=== PATIENT | female | born 1965 | race Caucasian/White ===

== ENCOUNTER 2018-06-18 16:55 | Observation (INO) ==
[2018-06-18] MEDS ORDERED: *HR* OxyCODONE Immed Rel 5 MG TABLET PO STA (17:42)
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
[2018-06-18] MEDS ORDERED: 0.9 % Sodium Chloride 1,000 ML IVC ONE (17:44)
[2018-06-18 18:08] LABS: Bilirubin,Urine Negative (Negative); Blood,Urine Small (Negative); Clarity,Urine Clear (Clear); Color,Urine Yellow (Yellow); Glucose,Urine (UA) Normal (Normal); Ketones,Urine Negative (Negative); Leukocyte Esterase,Urine Negative (Negative); Nitrite,Urine Negative (Negative); Protein,Urine Trace mg/dL (Neg-Trace); Urobilinogen,Urine Normal (Normal)
[2018-06-18 18:11] LABS: Bacteria,Urine None Seen per hpf (None-Few); Hyaline Casts,Urine None Seen per lpf (None-Few); RBC,Urine 0-3 per hpf (0-3); Squamous Epithelial Cell,Urine Many per lpf (None-Few); WBC,Urine 0-3 per hpf (0-3)
[2018-06-18 19:00] LABS: Basophils # 0.1 K/mcL (0.0-0.2); Basophils % 0.7 %; Eosinophils # 1.1 K/mcL (0.0-0.6); Eosinophils % 10.5 %; Hematocrit 34.4 % (35.3-44.9); Hemoglobin 11.4 g/dL (11.5-15.4); Immature Granulocytes % 0.1 % (0-4); Lymphocytes # 5.8 K/mcL (0.6-4.6); Lymphocytes % 53.2 %; Mean Corpuscular HGB Conc 33.1 g/dL (31.6-35.5); Mean Corpuscular Hemoglobin 27.1 pg (28.0-33.3); Mean Corpuscular Volume 81.9 fL (83.0-100.0); Mean Platelet Volume 10.1 fL (9.4-12.4); Monocytes # 1.5 K/mcL (0.0-1.3); Monocytes % 14.2 %; Neutrophils # 2.3 K/mcL (1.6-8.9); Platelet Count 274 K/mcL (140-400); Red Cell Distribution Width 19.3 % (11.5-14.5); Segmented Neutrophils % 21.3 %
[2018-06-18 19:21] LABS: BUN/Creatinine Ratio 12 (6-26); Blood Urea Nitrogen 9 mg/dL (6-20); Calcium 8.8 mg/dL (8.6-10.3); Carbon Dioxide 23 mEq/L (23-29); Chloride 108 mEq/L (98-107); Glucose 96 mg/dL (70-105); Osmolality,Calculated 289 (280-300); Potassium 3.2 mEq/L (3.5-5.1); Sodium 140 mEq/L (136-145); eGFR For Non-African Americans > 60 (> 60)
[2018-06-18 19:22] LABS: Troponin I < 0.03 ng/mL (< 0.04)
[2018-06-18] MEDS ORDERED: Potassium Chloride Elixir 20 MEQ/15 ML UDC PO ONE (19:23)
[2018-06-18] MEDS ORDERED: Metoclopramide 20 MG in 0.9 % Sodium Chloride 50 ML IVPB SCH (19:30)
[2018-06-18] MEDS ORDERED: Naloxone 0.4 MG/ML INJ IVP PRN (23:23)
[2018-06-18] MEDS ORDERED: traMADol 50 MG TABLET PO PRN (23:23)
[2018-06-18] MEDS: Acetaminophen 325 MG TABLET PO PRN (23:33)
[2018-06-19] MEDS: *HR* Heparin 5,000 UNIT/ML VIAL SQ SCH ×2 (00:10→05:10)
--- NOTE | 2018-06-19 02:27 | Internal Med History&Physical ---
Date of Encounter: 06/19/18 Time of Encounter: 02:27 Internal Medicine - H&P: HPI Chief complaint: Headache/Hypertension History of present illness: Ms. Haas is a 53 year old female with past medical history of hypertension who presented to the ED due to complaints of headache associated with hypertension and confusion. Patient states that she has been having headaches for the past several days which have been worse in intensity than usual. Headaches have been throbbing and frontal in location and nonradiating associated with photophobia. Patient denies any history of migraines but states that she has headaches on and off which occur for several days at a time. She was concerned that her blood pressure may be elevated and checked it at home and found it to be elevated with a systolic in the 180s. She also reports confusion which she describes as not feeling herself. Upon initial assessment in the ED blood pressure was found to be 202/125. She was given 1 dose of hydralazine with reduction of blood pressure to 154 and improvement in overall symptoms including confusion. In the ED patient endorsed jaw pain with eating and tenderness of the bilateral temporal arteries, worse on the left to palpation. An ESR was obtained due to concern for temporal arthritis and was mildly elevated in the 50s. However, patient's headaches seemed to Micheal location from one side to the other with treatment for pain and nausea. 3 findings were relatively unremarkable. CT scan of the head was performed which showed no acute intracranial abnormality. Past Med Surg Social Fam HX - Past Medical History Medical history: COPD, hypertension Additional medical history: neuropathy, iron deficiency anemia - Past Surgical History Surgical History: splenectomy - Social History Smoking Status: Current every day smoker Packs per day: 1.5 Smokeless Tobacco Status: No Alcohol use: none Drug use: none - Family History Mother History Unknown: Yes Adopted: Yes Father History Unknown: Yes Adopted: Yes Internal Medicine - H&P: Meds Lisinopril 20 mg pe PO BID 03/26/15 [History] Aspirin 04/08/15 [History] Allergy/AdvReac Type Severity Reaction Status Date / Time No Known Allergies Allergy Verified 06/18/18 17:16 All Systems PM: A 10-system review of systems was performed and is negative for pertinent findings except as documented above in the HPI. - Constitutional Constitutional: no chills, no fever(s), no night sweats - EENT Eyes: no change in vision, no discharge, no pain, no photophobia Ears: no ear discharge, no ear pain, no tinnitus Nose, mouth and throat: no dysphagia, no nasal discharge, no neck pain, no sore throat - Cardiovascular Cardiovascular ROS IM: no chest pain, no diaphoresis, no dyspnea, no lightheadedness, no palpitations, no syncope - Respiratory Respiratory: no cough, no dyspnea, no wheezing, no excessive phlegm production - Gastrointestinal Gastrointestinal: no abdominal pain, no diarrhea, no hematemesis, no hematochezia, no melena, no nausea, no vomiting - Genitourinary Genitourinary: no change in urinary stream, no dysuria, no flank pain, no hematuria - Musculoskeletal Musculoskeletal ROS IM: no numbness, no tingling - Integumentary Integumentary IM: no rash, no unusual bruising - Neurological Neurological ROS: no confusion, no convulsions, no focal weakness, no numbness, no tingling, no tremor(s) - Hematologic/Lymphatic Hematologic/Lymphatic: no easy bruising - Constitutional Vitals: Temp Pulse Resp BP Pulse Ox 97.7 F 95 15 180/110 98 06/18/18 22:54 06/19/18 02:09 06/18/18 22:54 06/19/18 02:09 06/18/18 22:54 Exam: General: Alert and oriented 3 lying in bed in no acute distress though covering her eyes with her forearm Skin:Normal color, no rash, no lesions. HEENT:EOM, pupils equal, round and reactive. No significant tenderness elicited to bilateral temporal palpation Cardiovascular:Normal S1 & S2, no rubs, murmurs or gallops. No JVD. Pulse regular. Lungs:Normal breath sounds, no wheezes or crackles. Abdomen:Soft, non-tender, no rigidity. Extremities:No deformity, no edema or tenderness, no joint swelling or clubbing. Neurological:Normal cognition and motor skills. Pulses:Carotid and radial pulses normal +2. Rest of the physical exam is non contributory Internal Med - H&P Results - Labs CBC & Chem 7: 06/19/18 04:09 06/19/18 04:09 Labs: Short CBC 06/18/18 Range/Units 18:49 WBC 10.8 (4.3-11.1) K/mcL Hgb 11.4 L (11.5-15.4) g/dL Hct 34.4 L (35.3-44.9) % Plt Count 274 (140-400) K/mcL Neutrophils # 2.3 (1.6-8.9) K/mcL BMP 06/18/18 18:49 Sodium 140 Potassium 3.2 L Chloride 108 H Carbon Dioxide 23 BUN 9 Creatinine 0.76 Glucose 96 Calcium 8.8 Cardiac Enzymes 06/18/18 Range/Units 18:49 Troponin I < 0.03 (< 0.04) ng/mL Urine 06/18/18 Range/Units 17:56 Urine Color Yellow (Yellow) Urine Clarity Clear (Clear) Urine pH 7.0 (5.0-8.0) pH Units Ur Specific [place] 1.020 (1.010-1.025) Urine Protein Trace (Neg-Trace) mg/dL Urine Glucose (UA) Normal (Normal) mg/dL - Impressions ITS Impressions Chest X-Ray 06/18/18 17:25 IMPRESSION: No acute cardiopulmonary disease. D/ / Valerio Guerra MD / Valerio Guerra MD Interpreting Provider: Valerio Guerra MD Head CT 06/18/18 17:42 IMPRESSION: No acute intracranial abnormality. D/ / Petra Arcos MD / Petra Arcos MD Interpreting Provider: Petra Arcos MD - Assessment and plan (1) Elevated blood pressure reading Current Visit: Yes Status: Acute Assessment and plan: Elevated blood pressure in the setting of headache and confusion described as not feeling right secondary to hypertensive urgency versus emergency. Aside from her headache, Laboratory findings not show any evidence of end organ damage. CT scan of head did not show any acute intracranial abnormalities. EKG was unremarkable. Blood pressure and symptoms appear to improve after receiving 10 mg of hydralazine in the ED. Monitor blood pressure Hydralazine PRN for systolic blood pressure greater than 180. (2) Headache Current Visit: Yes Status: Acute Assessment and plan: Headache that is frontal and bitemporal in location, described as pounding associated with photophobia and nausea appear to be consistent with migraine headache. Patient does have history of headaches but does state that this is greater in intensity than her previous headaches. CT scan of the head was unremarkable. Headache appeared to improve after treatment with anti-emetics and blood pressure control. There was initial concern for temporal arteritis given patient's age, questionable tenderness to palpation of the bitemporal arteries and reports of jaw pain with food. ESR was mildly elevated at 55. However, given the migratory pattern of her headache over the ED course, it was felt to be less consistent with temporal arteritis. Aside from her photophobia she does not endorse any transient vision loss. I asked the patient to let us know immediately if she has any sort of transient vision loss. She is currently feeling much better. We will continue to monitor closely and treat her hypertension. Pain regimen on board. Qualifiers: Headache type: unspecified Headache chronicity pattern: unspecified pattern Intractability: not intractable Qualified Code(s): R51 - Headache (3) Confusion Current Visit: Yes Status: Acute Assessment and plan: Confusion described as not feeling herself. CT scan of the head as stated above was unremarkable. Symptoms seem to have improved if not completely resolved after treatment of her blood pressure and nausea. We will monitor. (4) DVT prophylaxis Current Visit: Yes Status: Acute Assessment and plan: A cutaneous heparin - Time Spent With Patient Total time spent is greater than 50% in coordination of care (as documented) at patient's floor/unit and/or counseling patient:
[2018-06-19] MEDS ORDERED: Metoclopramide 10 MG/2 ML VIAL IVP PRN (02:46)
[2018-06-19] MEDS ORDERED: Potassium Chloride Elixir 20 MEQ/15 ML UDC PO ONE (04:07)
[2018-06-19 04:39] LABS: Basophils # 0.1 K/mcL (0.0-0.2); Basophils % 0.8 %; Eosinophils # 0.7 K/mcL (0.0-0.6); Eosinophils % 7.9 %; Hematocrit 33.4 % (35.3-44.9); Hemoglobin 11.2 g/dL (11.5-15.4); Immature Granulocytes % 0.4 % (0-4); Lymphocytes # 4.4 K/mcL (0.6-4.6); Lymphocytes % 52.7 %; Mean Corpuscular HGB Conc 33.5 g/dL (31.6-35.5); Mean Corpuscular Hemoglobin 27.1 pg (28.0-33.3); Mean Corpuscular Volume 80.9 fL (83.0-100.0); Mean Platelet Volume 11.7 fL (9.4-12.4); Monocytes # 1.2 K/mcL (0.0-1.3); Monocytes % 14.8 %; Neutrophils # 1.9 K/mcL (1.6-8.9); Platelet Count 233 K/mcL (140-400); Red Blood Count 4.13 M/mcL (3.82-4.97); Red Cell Distribution Width 19.3 % (11.5-14.5); Segmented Neutrophils % 23.4 %
[2018-06-19 04:45] LABS: Alanine Aminotransferase 14 Units/L (7-52); Albumin 3.1 g/dL (3.5-5.7); Albumin/Globulin Ratio 0.9 (1.1-2.2); Alkaline Phosphatase 115 Units/L (34-104); Aspartate Amino Transferase 29 Units/L (13-39); BUN/Creatinine Ratio 15 (6-26); Bilirubin,Total 0.7 mg/dL (0.3-1.0); Blood Urea Nitrogen 11 mg/dL (6-20); Calcium 8.7 mg/dL (8.6-10.3); Carbon Dioxide 20 mEq/L (23-29); Chloride 113 mEq/L (98-107); Globulin 3.6 g/dL (2.4-3.5); Glucose 131 mg/dL (70-105); Osmolality,Calculated 295 (280-300); Potassium 3.5 mEq/L (3.5-5.1); Sodium 142 mEq/L (136-145); Total Protein 6.7 g/dL (6.4-8.9); eGFR For Non-African Americans > 60 (> 60)
[2018-06-19 06:58] VITALS: BP 147/83
[2018-06-19] MEDS: Acetaminophen 325 MG TABLET PO PRN (09:13)
--- NOTE | 2018-06-19 10:46 | Discharge Summary ---
- NOTES TO OUTPATIENT PROVIDER Notes to Outpatient Provider: Follow up with PCP in one week. please quit smoking Date of Encounter: 06/19/18 Time of Encounter: 10:40 - Discharge Diagnosis (1) Confusion Priority: Primary Status: Acute Assessment and Plan: Unclear etiology be due to uncontrolled hypertension, headache and anxiety resolved (2) Headache Priority: Primary Status: Acute Qualifiers: Headache type: unspecified Headache chronicity pattern: unspecified pattern Intractability: not intractable Qualified Code(s): R51 - Headache (3) DVT prophylaxis Priority: Secondary Status: Acute (4) Hypertensive urgency Priority: Secondary Status: Acute (5) Tobacco dependence Priority: Secondary Status: Acute Hospital course: Ms. Haas is a 53 year old female with past medical history of COPD, hypertension and chronic tobacco dependence patient presented to the ED due to complaints of headache. She also reports confusion which she describes as not feeling herself. Patient states that she has been having headaches for the past several days which have been worse in intensity than usual. Headaches have been throbbing and frontal in location and non radiating associated with photophobia. She was concerned that her blood pressure may be elevated and checked it at home and found it to be elevated with a systolic in the 180s. Upon initial assessment in the ED blood pressure was found to be 202/125. She was given 1 dose of hydralazine with reduction of blood pressure to 154 and improvement in overall symptoms including confusion. Patient was admitted in the hospital and started her on symptomatic and supportive care with anti-inflammatory medication, narcotics and anti emetics. Patient stated her headache completely resolved today Tylenol. She denied any blurry vision/visual changes. Patient does smoke 1 1/2 pack cigarettes per day, I did relationship counselor the patient to quit smoking and offered her nicotine patches. - Time Spent with Patient Total time spent providing and/or coordinating discharge services: - Discharge Medications Prescriptions: Naproxen 500 mg PO BID PRN #20 tablet PRN Reason: Headache Nicotine Patch [Nicoderm] 21 mg TD DAILY #30 patch.td24 Home Medications: Amlodipine Besylate 10 mg PO DAILY 06/19/18 [History] Aspirin [Lo-Dose Aspirin EC] 81 mg PO DAILY 06/19/18 [History] Ferrous Gluconate 324 mg PO DAILY 06/19/18 [History] Labetalol HCl 100 mg PO DAILY 06/19/18 [History] Lisinopril [Zestril] 20 mg PO DAILY 06/19/18 [History] Naproxen 500 mg PO BID PRN #20 tablet 06/19/18 [Rx] Nicotine Patch [Nicoderm] 21 mg TD DAILY #30 patch.td24 06/19/18 [Rx] Omeprazole [PriLOSEC] 20 mg PO DAILY 06/19/18 [History] hydrOXYzine HCl [Hydroxyzine HCl] 50 mg PO Q8H PRN 06/19/18 [History] Allergies/Adverse Reactions: Allergy/AdvReac Type Severity Reaction Status Date / Time No Known Allergies Allergy Verified 06/18/18 17:16 Date of admission: 06/18/18 21:29 Primary care physician: Una Brown CNP - Constitutional Vitals: Temp Pulse Resp BP Pulse Ox 98.1 F 98 16 147/83 95 06/19/18 06:57 06/19/18 06:57 06/19/18 06:57 06/19/18 06:57 06/19/18 06:57 General appearance: Present: A&O X 3, no acute distress, answers questions appropriately Exam: Gen: Alert, awake, Oriented to time,place and person Chest: Diminished breath sounds B/L, No wheezing, No crackles, No rales Heart: S1S2+ RRR No murmurs Abd: Soft, NT, BS +, No organomegaly Ext: No edema, pulses are palpable, No calf tenderness Neuro : Benign findings Skin: No rash. - Patient Status Disposition: Home, Self-Care Condition: Good Overall status at discharge: patient is back to baseline - Discharge Instructions Follow Up With: Una Brown CNP [Primary Care Provider] - - Diet and Activity Activity: increase activity as tolerated Diet: low salt diet
--- NOTE | 2018-06-20 19:59 | Electrocardiograph Report ---
[address] [place] [address] Test Date: 2018-06-18 Pat Name: Tammy Haas Department: EXAM10 Room: 3B Gender: F Facility Administrator: : [id number] Requested By: Tulio Carmona Order Number: [id number] Reading MD: Eulalia Curry Measurements Intervals [place] Rate: 93 P: 57 WA: 194 QRS: -36 QRSD: 85 T: 50 QT: 373 QTc: 464 Interpretive Statements Sinus rhythm Inferior infarct, old Probable anteroseptal infarct, old Electronically Signed On 06-20-2018 19:57:54 EST by Eulalia Curry
== END 2018-06-19 11:56 | disposition home or self-care (01) ==
LOC: 3BNU 16:55 → EMEROOARM 16:55 → 3BNU 22:01
PROVIDERS: ADMIT Internal Medicine; ATTEND Internal Medicine

== ENCOUNTER 2019-11-16 17:15 | Observation (INO) ==
[2019-11-16] MEDS ORDERED: Ondansetron 4 MG/2 ML VIAL IVP ONE ×2 (18:19→22:45)
[2019-11-16] MEDS ORDERED: Isovue-370 500 ML BOTTLE IVP ONE (18:21)
[2019-11-16 19:07] LABS: Bilirubin,Urine Negative (Negative); Blood,Urine Negative (Negative); Clarity,Urine Cloudy (Clear); Color,Urine Yellow (Yellow); Glucose,Urine (UA) Normal (Normal); Ketones,Urine Negative (Negative); Leukocyte Esterase,Urine Negative (Negative); Nitrite,Urine Negative (Negative); PH,Urine 7.5 pH Units (5.0-8.0); Protein,Urine Negative (Neg-Trace); Specific Gravity,Urine 1.012 (1.010-1.025); Urobilinogen,Urine Normal (Normal)
[2019-11-16 19:08] LABS: Bacteria,Urine None Seen per hpf (None-Few); Hyaline Casts,Urine None Seen per lpf (None-Few); RBC,Urine 0-3 per hpf (0-3); Squamous Epithelial Cell,Urine Moderate per lpf (None-Few); WBC,Urine 0-3 per hpf (0-3)
[2019-11-16 19:52] LABS: Hemoglobin 10.5 g/dL (11.5-15.4); Immature Granulocytes % 0.4 % (0-4); Mean Corpuscular Hemoglobin 25.1 pg (28.0-33.3); Monocytes % 17.6 %; Red Blood Count 4.19 M/mcL (3.82-4.97)
[2019-11-16 19:54] LABS: Basophils # 0.1 K/mcL (0.0-0.2); Basophils % 0.9 %; Eosinophils # 0.1 K/mcL (0.0-0.6); Eosinophils % 1.1 %; Hematocrit 33.9 % (35.3-44.9); Immature Platelets 6.2 % (1.1-6.1); Lymphocytes # 2.1 K/mcL (0.6-4.6); Lymphocytes % 25.3 %; Mean Corpuscular Volume 80.9 fL (83.0-100.0); Mean Platelet Volume 10.7 fL (9.4-12.4); Monocytes # 1.4 K/mcL (0.0-1.3); Neutrophils # 4.4 K/mcL (1.6-8.9); Platelet Count 240 K/mcL (140-400); Red Cell Distribution Width 21.5 % (11.5-14.5); Segmented Neutrophils % 54.7 %; White Blood Count 8.1 K/mcL (4.3-11.1)
[2019-11-16 19:56] LABS: Alanine Aminotransferase 14 Units/L (7-52); Albumin 3.5 g/dL (3.5-5.7); Albumin/Globulin Ratio 0.9 (1.1-2.2); Alkaline Phosphatase 89 Units/L (34-104); Aspartate Amino Transferase 26 Units/L (13-39); BUN/Creatinine Ratio 12 (6-26); Bilirubin,Total 0.6 mg/dL (0.3-1.0); Blood Urea Nitrogen 9 mg/dL (6-20); Calcium 9.8 mg/dL (8.6-10.3); Carbon Dioxide 29 mEq/L (23-29); Chloride 100 mEq/L (98-107); Glucose 111 mg/dL (70-105); Lipase 23 Units/L (11-82); Osmolality,Calculated 279 (280-300); Sodium 135 mEq/L (136-145); Total Protein 7.5 g/dL (6.4-8.9); eGFR For African Americans > 60 (> 60); eGFR For Non-African Americans > 60 (> 60)
[2019-11-16 19:57] LABS: Troponin I < 0.03 ng/mL (< 0.04)
[2019-11-16 20:06] LABS: Amorphous Sediment,Urine Few per hpf (Few)
[2019-11-16] MEDS ORDERED: 0.9 % Sodium Chloride 1,000 ML IVC ONE (20:15)
[2019-11-16] MEDS ORDERED: Insulin Human Regular 10 UNIT in 0.9 % Sodium Chloride 10 ML IV ONE (20:15)
[2019-11-16 20:18] LABS: Platelet Estimate Normal (Normal)
[2019-11-16 20:19] LABS: Anisocytosis 2+ (Not Present); Hypochromasia Present (Not Present)
[2019-11-16] MEDS ORDERED: Potassium Chloride Elixir 20 MEQ/15 ML UDC PO ONE (21:23)
[2019-11-16] MEDS ORDERED: Morphine Sulfate 2 MG/ML SYRINGE IVP ONE (22:49)
[2019-11-16] MEDS ORDERED: Azithromycin 500 MG in 0.9 % Sodium Chloride 250 ML IVPB ONE (23:23)
[2019-11-16] MEDS ORDERED: cefTRIAXone 1,000 MG in Water for inj. (sterile) 10 ML IVP ONE (23:54)
[2019-11-17] MEDS ORDERED: Naloxone 0.4 MG/ML INJ IVP PRN (02:56)
[2019-11-17] MEDS ORDERED: Ipratropium/Albuterol Neb 3 ML IH PRN (04:00)
[2019-11-17] MEDS: *HR* Heparin 5,000 UNIT/ML VIAL SQ SCH ×3 (04:54→21:06)
[2019-11-17] MEDS: Piperacillin/Tazobactam 3.375 GM in 0.9 % Sodium Chloride Mini Bag 100 ML IVPB SCH ×2 (04:55→11:45)
[2019-11-17 07:22] LABS: Hematocrit 33.1 % (35.3-44.9); Hemoglobin 10.3 g/dL (11.5-15.4); Mean Corpuscular HGB Conc 31.1 g/dL (31.6-35.5); Mean Corpuscular Hemoglobin 25.4 pg (28.0-33.3); Mean Corpuscular Volume 81.5 fL (83.0-100.0); Mean Platelet Volume 10.8 fL (9.4-12.4); Platelet Count 253 K/mcL (140-400); Red Blood Count 4.06 M/mcL (3.82-4.97); Red Cell Distribution Width 21.4 % (11.5-14.5); White Blood Count 10.7 K/mcL (4.3-11.1)
[2019-11-17 07:31] LABS: INR 1.2; Prothrombin Time 13.5 Seconds (9.4-12.1)
[2019-11-17 07:47] LABS: % Iron Saturation 6 % (15-50); BUN/Creatinine Ratio 12 (6-26); Blood Urea Nitrogen 9 mg/dL (6-20); Calcium 9.4 mg/dL (8.6-10.3); Carbon Dioxide 25 mEq/L (23-29); Chloride 104 mEq/L (98-107); Chol/HDL Ratio 3.3 (0-4.9); Cholesterol 120 mg/dL (< 200); Glucose 112 mg/dL (70-105); HDL Cholesterol 36 mg/dL (40-59); Iron 28 mcg/dL (50-170); LDL Cholesterol,Calculated 71 mg/dL (0-99); Magnesium 1.7 mg/dL (1.6-2.6); Osmolality,Calculated 283 (280-300); Phosphorous 2.1 mg/dL (2.7-4.5); Potassium 2.9 mEq/L (3.5-5.1); Sodium 137 mEq/L (136-145); Transferrin 308 mg/dL (203-362); Triglycerides 66 mg/dL (< 150); eGFR For African Americans > 60 (> 60); eGFR For Non-African Americans > 60 (> 60)
[2019-11-17 07:52] LABS: Anisocytosis 1+ (Not Present); Eosinophils # 0.4 K/mcL (0.0-0.6); Lymphocytes # 3.2 K/mcL (0.6-4.6); Monocytes # 2.8 K/mcL (0.0-1.3); Neutrophils # 4.3 K/mcL (1.6-8.9)
[2019-11-17 07:53] LABS: Hypochromasia Present (Not Present); Platelet Estimate Normal (Normal)
[2019-11-17 07:59] LABS: Ferritin 17 ng/mL (10-120)
[2019-11-17 08:00] LABS: Procalcitonin 0.07 ng/mL (0.00-0.15)
[2019-11-17] MEDS: lisinopriL 20 MG TABLET PO SCH (08:27)
[2019-11-17] MEDS: Aspirin Enteric Coated 81 MG Tablet PO SCH (08:27)
[2019-11-17] MEDS: Nicotine 21 MG PATCH.TD24 TD SCH (08:28)
[2019-11-17] MEDS ORDERED: *HR* OxyCODONE Immed Rel 5 MG TABLET PO SCH (09:00)
[2019-11-17] MEDS: Ondansetron 4 MG/2 ML VIAL IVP PRN ×2 (11:39→19:58)
[2019-11-17] MEDS ORDERED: Azithromycin 500 MG in 0.9 % Sodium Chloride 250 ML IVPB SCH (12:00)
[2019-11-17] MEDS ORDERED: Potassium Phosphate 44 MEQ in 0.9 % Sodium Chloride 250 ML IVPB ONE (15:13)
[2019-11-17] MEDS ORDERED: *HR* Promethazine 25 MG/ML VIAL IVP PRN (15:25)
[2019-11-17] MEDS: polyethylene glycoL 3350 17 GM POWD.PACK PO SCH ×2 (16:05→19:58)
[2019-11-17] MEDS: Sennosides/Docusate Sodium TABLET PO SCH ×2 (16:05→19:58)
[2019-11-17] MEDS: *HR* OxyCODONE Immed Rel 5 MG TABLET PO PRN (19:58)
[2019-11-17 21:34] LABS: BUN/Creatinine Ratio 12 (6-26); Blood Urea Nitrogen 10 mg/dL (6-20); Calcium 9.8 mg/dL (8.6-10.3); Carbon Dioxide 27 mEq/L (23-29); Chloride 103 mEq/L (98-107); Glucose 129 mg/dL (70-105); Osmolality,Calculated 283 (280-300); Potassium 3.5 mEq/L (3.5-5.1); Sodium 136 mEq/L (136-145); eGFR For African Americans > 60 (> 60); eGFR For Non-African Americans > 60 (> 60)
[2019-11-18 04:22] LABS: BUN/Creatinine Ratio 13 (6-26); Blood Urea Nitrogen 9 mg/dL (6-20); Calcium 9.8 mg/dL (8.6-10.3); Carbon Dioxide 25 mEq/L (23-29); Chloride 104 mEq/L (98-107); Glucose 96 mg/dL (70-105); Magnesium 1.8 mg/dL (1.6-2.6); Osmolality,Calculated 283 (280-300); Phosphorous 3.6 mg/dL (2.7-4.5); Potassium 3.5 mEq/L (3.5-5.1); Sodium 137 mEq/L (136-145); eGFR For African Americans > 60 (> 60); eGFR For Non-African Americans > 60 (> 60)
[2019-11-18] MEDS: *HR* Heparin 5,000 UNIT/ML VIAL SQ SCH (05:54)
[2019-11-18] MEDS: Sennosides/Docusate Sodium TABLET PO SCH (09:25)
[2019-11-18] MEDS: lisinopriL 20 MG TABLET PO SCH (09:25)
[2019-11-18] MEDS: *HR* OxyCODONE Immed Rel 5 MG TABLET PO PRN (09:25)
[2019-11-18] MEDS: Aspirin Enteric Coated 81 MG Tablet PO SCH (09:25)
[2019-11-18] MEDS: polyethylene glycoL 3350 17 GM POWD.PACK PO SCH (09:26)
[2019-11-18] MEDS: Nicotine 21 MG PATCH.TD24 TD SCH (09:26)
[2019-11-18 09:51] VITALS: BP 147/88
== END 2019-11-18 15:53 | disposition home or self-care (01) ==
LOC: EMEROOARM 17:15 → 2NENU 17:15
PROVIDERS: ADMIT Internal Medicine; ATTEND Internal Medicine

== ENCOUNTER 2020-02-10 11:41 | Observation (INO) ==
[2020-02-10 14:15] LABS: Hematocrit 32.4 % (35.3-44.9); Hemoglobin 10.3 g/dL (11.5-15.4); Mean Corpuscular HGB Conc 31.8 g/dL (31.6-35.5); Mean Corpuscular Hemoglobin 27.4 pg (28.0-33.3); Mean Corpuscular Volume 86.2 fL (83.0-100.0); Mean Platelet Volume 10.6 fL (9.4-12.4); Platelet Count 268 K/mcL (140-400); Red Blood Count 3.76 M/mcL (3.82-4.97); Red Cell Distribution Width 19.4 % (11.5-14.5); White Blood Count 9.4 K/mcL (4.3-11.1)
[2020-02-10 14:25] LABS: Activated Partial Thrombo Time 35.1 Seconds (26.0-36.0); INR 1.1
[2020-02-10 14:31] LABS: Amphetamine Screen,Urine Negative ng/mL (Cutoff=1000); Barbiturate Screen,Urine Positive ng/mL (Cutoff=200); Benzodiazepines Screen,Urine Negative ng/mL (Cutoff=200); Cannabinoid Screen,Urine Negative ng/mL (Cutoff = 50); Cocaine Screen,Urine Negative ng/mL (Cutoff= 300); Opiate Screen,Urine Positive ng/mL (Cutoff=300); Phencyclidine Screen,Urine Negative ng/mL (Cutoff=25)
[2020-02-10 14:37] LABS: Alanine Aminotransferase 17 Units/L (7-52); Albumin 3.4 g/dL (3.5-5.7); Alkaline Phosphatase 107 Units/L (34-104); Aspartate Amino Transferase 46 Units/L (13-39); BUN/Creatinine Ratio 18 (6-26); Bilirubin,Direct 0.2 mg/dL (0.0-0.2); Bilirubin,Indirect 0.4 mg/dL (0.0-1.0); Bilirubin,Total 0.6 mg/dL (0.3-1.0); Blood Urea Nitrogen 14 mg/dL (6-20); Calcium 9.2 mg/dL (8.6-10.3); Carbon Dioxide 25 mEq/L (23-29); Chloride 103 mEq/L (98-107); Creatine Kinase 481 Units/L (30-223); Ethanol < 10 mg/dL (Less than 10); Globulin 3.4 g/dL (2.4-3.5); Glucose 103 mg/dL (70-105); Osmolality,Calculated 279 (280-300); Potassium 3.7 mEq/L (3.5-5.1); Sodium 134 mEq/L (136-145); Total Protein 6.8 g/dL (6.4-8.9); eGFR For African Americans > 60 (> 60); eGFR For Non-African Americans > 60 (> 60)
[2020-02-10 14:40] LABS: Anisocytosis 1+ (Not Present); Eosinophils # 0.6 K/mcL (0.0-0.6); Hypochromasia Present (Not Present); Lymphocytes # 1.9 K/mcL (0.6-4.6); Monocytes # 1.3 K/mcL (0.0-1.3); Neutrophils # 5.6 K/mcL (1.6-8.9); Platelet Estimate Normal (Normal)
[2020-02-10 14:41] LABS: Bacteria,Urine Few per hpf (None-Few); Bilirubin,Urine Negative (Negative); Blood,Urine Small (Negative); Clarity,Urine Clear (Clear); Color,Urine Yellow (Yellow); Glucose,Urine (UA) Normal (Normal); Hyaline Casts,Urine Few per lpf (None Seen); Ketones,Urine Negative (Negative); Leukocyte Esterase,Urine Negative (Negative); Mucus,Urine Few per lpf (None-Few); Nitrite,Urine Negative (Negative); PH,Urine 6.5 pH Units (5.0-8.0); Protein,Urine Trace mg/dL (Neg-Trace); Specific Gravity,Urine 1.018 (1.010-1.025); Squamous Epithelial Cell,Urine Few per hpf (None-Few); Urobilinogen,Urine Normal (Normal); WBC,Urine 0-3 per hpf (0-3)
[2020-02-10 14:42] LABS: Troponin I 0.16 ng/mL (< 0.04)
[2020-02-10 14:49] LABS: Thyroid Stimulating Hormone 3.458 mcIU/mL (0.340-5.600)
[2020-02-10] MEDS ORDERED: *HR* Heparin 5,000 UNIT/ML VIAL IVP ONE (15:22)
[2020-02-10] MEDS ORDERED: *HR* Heparin 5,000 UNIT/ML VIAL IVP PRN ×2 (15:22)
[2020-02-10] MEDS ORDERED: Heparin 25,000 UNIT/250 ML D5W 25,000 UNIT/250 ML IV.SOLN IVC SCH (15:30)
[2020-02-10] MEDS ORDERED: Naloxone 0.4 MG/ML INJ IVP PRN (17:38)
[2020-02-10] MEDS ORDERED: Perflutren Lipid Microsphere 1.3 ML in 0.9 % Sodium Chloride 8.7 ML IVP ONE (18:04)
[2020-02-10] MEDS ORDERED: Aspirin 325 MG TABLET PO ONE (18:13)
[2020-02-10] MEDS ORDERED: *HR* LORazepam 2 MG/ML VIAL IVP PRN ×3 (18:38)
[2020-02-10 20:21] VITALS: BP 145/91
[2020-02-10] MEDS ORDERED: Lactulose Oral Soln 20 GM/30 ML UDC PO SCH (21:00)
[2020-02-10] MEDS ORDERED: Budesonide/Formoterol 80/4.5 1 PUFF INH IH SCH (22:00)
[2020-02-10] MEDS ORDERED: Ipratropium 1 PUFF INHALER IH SCH (23:00)
[2020-02-11] MEDS ORDERED: Vitamin B Complex/Vit C/Vit E 1 EACH TABLET PO SCH (09:00)
[2020-02-11] MEDS ORDERED: Folic Acid 1 MG TABLET PO SCH (09:00)
[2020-02-11] MEDS ORDERED: Aspirin Enteric Coated 81 MG Tablet PO SCH (09:00)
[2020-02-11] MEDS ORDERED: amLODIPine 5 MG TABLET PO SCH (09:00)
[2020-02-11] MEDS ORDERED: lisinopriL 20 MG TABLET PO SCH (09:00)
[2020-02-11] MEDS ORDERED: Thiamine (B-1) 100 MG TABLET PO SCH (09:00)
== END 2020-02-10 23:22 | disposition left against medical advice (07) ==
LOC: 2NENU 11:41 → EMEROOARM 11:41 → 2NENU 16:56
PROVIDERS: ADMIT Internal Medicine; ATTEND Internal Medicine

== ENCOUNTER 2020-02-12 11:57 | Observation (INO) ==
[2020-02-12] MEDS ORDERED: *HR* LORazepam 2 MG/ML VIAL ONE (13:14)
[2020-02-12] MEDS ORDERED: levETIRAcetam 1,000 MG in 0.9 % Sodium Chloride 100 ML IVPB ONE (13:16)
[2020-02-12 13:42] LABS: Amorphous Sediment,Urine Few per hpf (None-Few); Bilirubin,Urine Negative (Negative); Blood,Urine Negative (Negative); Clarity,Urine Turbid (Clear); Color,Urine Yellow (Yellow); Glucose,Urine (UA) Normal (Normal); Ketones,Urine Trace mg/dL (Negative); Leukocyte Esterase,Urine Negative (Negative); Mucus,Urine Few per lpf (None-Few); Nitrite,Urine Negative (Negative); Protein,Urine Trace mg/dL (Neg-Trace); Specific Gravity,Urine 1.018 (1.010-1.025)
[2020-02-12 13:51] LABS: Basophils # 0.1 K/mcL (0.0-0.2); Basophils % 0.6 %; Eosinophils # 0.1 K/mcL (0.0-0.6); Eosinophils % 0.9 %; Hematocrit 33.6 % (35.3-44.9); Hemoglobin 10.5 g/dL (11.5-15.4); Immature Granulocytes % 1.5 % (0-4); Lymphocytes # 1.8 K/mcL (0.6-4.6); Lymphocytes % 22.9 %; Mean Corpuscular HGB Conc 31.3 g/dL (31.6-35.5); Mean Corpuscular Hemoglobin 26.9 pg (28.0-33.3); Mean Corpuscular Volume 85.9 fL (83.0-100.0); Mean Platelet Volume 9.9 fL (9.4-12.4); Monocytes # 0.9 K/mcL (0.0-1.3); Monocytes % 11.3 %; Nucleated Red Blood Cells 0.3 /100 WBC (0); Platelet Count 312 K/mcL (140-400); Red Blood Count 3.91 M/mcL (3.82-4.97); Red Cell Distribution Width 19.7 % (11.5-14.5); Segmented Neutrophils % 62.8 %
[2020-02-12 13:58] LABS: Prothrombin Time 11.4 Seconds (9.4-12.1)
[2020-02-12 14:01] LABS: Activated Partial Thrombo Time 34.7 Seconds (26.0-36.0)
[2020-02-12 14:22] LABS: Amphetamine Screen,Urine Negative ng/mL (Cutoff=1000); Barbiturate Screen,Urine Positive ng/mL (Cutoff=200); Benzodiazepines Screen,Urine Negative ng/mL (Cutoff=200); Cannabinoid Screen,Urine Negative ng/mL (Cutoff = 50); Cocaine Screen,Urine Negative ng/mL (Cutoff= 300); Opiate Screen,Urine Negative ng/mL (Cutoff=300); Phencyclidine Screen,Urine Negative ng/mL (Cutoff=25)
[2020-02-12 14:31] LABS: Alanine Aminotransferase 17 Units/L (7-52); Albumin 3.3 g/dL (3.5-5.7); Albumin/Globulin Ratio 0.9 (1.1-2.2); Alkaline Phosphatase 102 Units/L (34-104); Aspartate Amino Transferase 35 Units/L (13-39); BUN/Creatinine Ratio 11 (6-26); Bilirubin,Direct 0.1 mg/dL (0.0-0.2); Bilirubin,Indirect 0.4 mg/dL (0.0-1.0); Bilirubin,Total 0.5 mg/dL (0.3-1.0); Blood Urea Nitrogen 10 mg/dL (6-20); Carbon Dioxide 19 mEq/L (23-29); Chloride 106 mEq/L (98-107); Ethanol < 10 mg/dL (Less than 10); Globulin 3.6 g/dL (2.4-3.5); Glucose 155 mg/dL (70-105); Osmolality,Calculated 290 (280-300); Potassium 3.3 mEq/L (3.5-5.1); Sodium 139 mEq/L (136-145); Thyroid Stimulating Hormone 1.011 mcIU/mL (0.340-5.600); Total Protein 6.9 g/dL (6.4-8.9); Troponin I 0.04 ng/mL (< 0.04); eGFR For African Americans > 60 (> 60); eGFR For Non-African Americans > 60 (> 60)
[2020-02-12] MEDS ORDERED: Naloxone 0.4 MG/ML INJ IVP PRN ×2 (15:57→15:58)
[2020-02-12] MEDS ORDERED: *HR* LORazepam 2 MG/ML VIAL IVP PRN (16:08)
[2020-02-12 16:30] LABS: Magnesium 1.9 mg/dL (1.6-2.6)
[2020-02-12] MEDS ORDERED: traZODone 50 MG TABLET PO PRN (16:53)
[2020-02-12] MEDS ORDERED: Gadolinium Contrast Agent (WT Based) IV PRN (18:22)
[2020-02-12] MEDS ORDERED: *HR* Dextrose 50 % in Water (Vial) 50 ML VIAL IVP PRN (18:24)
[2020-02-12] MEDS ORDERED: D5% in Water 1,000 ML IVC PRN (18:24)
[2020-02-12] MEDS ORDERED: Dextrose Gel 15 GM/37.5 ML TUBE PO PRN ×2 (18:24)
[2020-02-12] MEDS: *HR* OxyCODONE Immed Rel 5 MG TABLET PO PRN (18:54)
[2020-02-12] MEDS: Lactulose Oral Soln 20 GM/30 ML UDC PO SCH ×2 (18:54→21:37)
[2020-02-12] MEDS: Acetaminophen 325 MG TABLET PO PRN (20:44)
[2020-02-12] MEDS: Insulin LISPRO 300 UNITS/3 ML VIAL SQ SCH (21:32)
[2020-02-12] MEDS: Melatonin 3 MG TABLET PO SCH (21:38)
[2020-02-12] MEDS: *HR* Heparin 5,000 UNIT/ML VIAL SQ SCH (21:38)
[2020-02-12] MEDS: Gabapentin 300 MG CAPSULE PO SCH (21:38)
[2020-02-12] MEDS ORDERED: Ketorolac 15 MG/ML VIAL IVP ONE (21:40)
[2020-02-13 00:57] LABS: Basophils # 0.1 K/mcL (0.0-0.2); Basophils % 0.5 %; Eosinophils # 0.2 K/mcL (0.0-0.6); Eosinophils % 1.6 %; Hematocrit 31.1 % (35.3-44.9); Immature Granulocytes % 0.3 % (0-4); Lymphocytes # 2.9 K/mcL (0.6-4.6); Lymphocytes % 28.9 %; Mean Corpuscular HGB Conc 32.2 g/dL (31.6-35.5); Mean Corpuscular Hemoglobin 27.2 pg (28.0-33.3); Mean Corpuscular Volume 84.7 fL (83.0-100.0); Mean Platelet Volume 10.3 fL (9.4-12.4); Monocytes # 1.5 K/mcL (0.0-1.3); Neutrophils # 5.4 K/mcL (1.6-8.9); Platelet Count 288 K/mcL (140-400); Red Blood Count 3.67 M/mcL (3.82-4.97); Red Cell Distribution Width 19.3 % (11.5-14.5); Segmented Neutrophils % 53.7 %
[2020-02-13 01:16] LABS: BUN/Creatinine Ratio 11 (6-26); Blood Urea Nitrogen 10 mg/dL (6-20); Calcium 8.9 mg/dL (8.6-10.3); Carbon Dioxide 27 mEq/L (23-29); Chloride 109 mEq/L (98-107); Glucose 113 mg/dL (70-105); Magnesium 2.1 mg/dL (1.6-2.6); Osmolality,Calculated 294 (280-300); Potassium 3.7 mEq/L (3.5-5.1); Sodium 142 mEq/L (136-145); eGFR For African Americans > 60 (> 60); eGFR For Non-African Americans > 60 (> 60)
[2020-02-13 01:17] LABS: Albumin 3.1 g/dL (3.5-5.7); Albumin/Globulin Ratio 0.9 (1.1-2.2); Bilirubin,Direct 0.1 mg/dL (0.0-0.2); Bilirubin,Indirect 0.3 mg/dL (0.0-1.0); Bilirubin,Total 0.4 mg/dL (0.3-1.0); Globulin 3.4 g/dL (2.4-3.5); Total Protein 6.5 g/dL (6.4-8.9)
[2020-02-13 01:18] LABS: % Iron Saturation 3 % (15-50); Iron 12 mcg/dL (50-170); Transferrin 302 mg/dL (203-362)
[2020-02-13 01:36] LABS: Ferritin 10 ng/mL (10-120)
[2020-02-13 01:41] LABS: Folate 16.1 ng/mL (3.0-16.0)
[2020-02-13] MEDS: *HR* OxyCODONE Immed Rel 5 MG TABLET PO PRN ×4 (02:14→22:48)
[2020-02-13] MEDS: *HR* Heparin 5,000 UNIT/ML VIAL SQ SCH ×3 (05:17→21:19)
[2020-02-13] MEDS: Insulin LISPRO 300 UNITS/3 ML VIAL SQ SCH ×4 (09:52→21:10)
[2020-02-13] MEDS: amLODIPine 5 MG TABLET PO SCH (09:57)
[2020-02-13] MEDS: lisinopriL 20 MG TABLET PO SCH (09:58)
[2020-02-13] MEDS: Lactulose Oral Soln 20 GM/30 ML UDC PO SCH ×3 (09:58→21:19)
[2020-02-13] MEDS: Cholecalciferol (D-3) 1,000 UNIT (25MCG) TABLET PO SCH (09:58)
[2020-02-13] MEDS: Aspirin Enteric Coated 81 MG Tablet PO SCH (09:58)
[2020-02-13] MEDS: Gabapentin 300 MG CAPSULE PO SCH ×3 (09:58→21:18)
[2020-02-13] MEDS ORDERED: Simethicone 80 MG TAB.CHEW PO PRN (11:10)
[2020-02-13 11:21] LABS: Estimated Average Glucose 131 mg/dl
[2020-02-13] MEDS: Thiamine (B-1) 100 MG TABLET PO SCH (16:02)
[2020-02-13] MEDS: Multivit/Ca/Min/Fe/FA 1 TAB TABLET PO SCH (16:02)
[2020-02-13] MEDS: Folic Acid 1 MG TABLET PO SCH (16:03)
[2020-02-13] MEDS: Budesonide/Formoterol 80/4.5 1 PUFF INH IH SCH (19:58)
[2020-02-13] MEDS ORDERED: LACTULOSE 10 GM PO SCH (21:00)
[2020-02-13] MEDS: Acetaminophen 325 MG TABLET PO PRN (21:18)
[2020-02-13] MEDS: Melatonin 3 MG TABLET PO SCH (21:19)
[2020-02-14] MEDS: *HR* Heparin 5,000 UNIT/ML VIAL SQ SCH (05:45)
[2020-02-14 07:14] VITALS: BP 137/86
[2020-02-14 07:37] LABS: Basophils # 0.1 K/mcL (0.0-0.2); Basophils % 1.2 %; Eosinophils # 0.9 K/mcL (0.0-0.6); Eosinophils % 11.1 %; Hemoglobin 10.2 g/dL (11.5-15.4); Immature Granulocytes % 0.2 % (0-4); Lymphocytes # 3.8 K/mcL (0.6-4.6); Lymphocytes % 45.3 %; Mean Corpuscular HGB Conc 31.9 g/dL (31.6-35.5); Mean Corpuscular Hemoglobin 27.4 pg (28.0-33.3); Mean Platelet Volume 10.5 fL (9.4-12.4); Monocytes # 1.3 K/mcL (0.0-1.3); Neutrophils # 2.3 K/mcL (1.6-8.9); Platelet Count 301 K/mcL (140-400); Red Blood Count 3.72 M/mcL (3.82-4.97); Red Cell Distribution Width 19.2 % (11.5-14.5); Segmented Neutrophils % 27.2 %; White Blood Count 8.4 K/mcL (4.3-11.1)
[2020-02-14] MEDS: Budesonide/Formoterol 80/4.5 1 PUFF INH IH SCH (07:41)
[2020-02-14 07:47] LABS: BUN/Creatinine Ratio 12 (6-26); Blood Urea Nitrogen 10 mg/dL (6-20); Calcium 9.1 mg/dL (8.6-10.3); Carbon Dioxide 28 mEq/L (23-29); Chloride 107 mEq/L (98-107); Glucose 88 mg/dL (70-105); Osmolality,Calculated 282 (280-300); Potassium 4.1 mEq/L (3.5-5.1); Sodium 137 mEq/L (136-145); eGFR For African Americans > 60 (> 60); eGFR For Non-African Americans > 60 (> 60)
[2020-02-14] MEDS: Insulin LISPRO 300 UNITS/3 ML VIAL SQ SCH ×2 (08:40→11:43)
[2020-02-14] MEDS: Gabapentin 300 MG CAPSULE PO SCH (08:45)
[2020-02-14] MEDS: lisinopriL 20 MG TABLET PO SCH (08:45)
[2020-02-14] MEDS: amLODIPine 5 MG TABLET PO SCH (08:45)
[2020-02-14] MEDS: Folic Acid 1 MG TABLET PO SCH (08:45)
[2020-02-14] MEDS: Multivit/Ca/Min/Fe/FA 1 TAB TABLET PO SCH (08:46)
[2020-02-14] MEDS: Thiamine (B-1) 100 MG TABLET PO SCH (08:46)
[2020-02-14] MEDS: Lactulose Oral Soln 20 GM/30 ML UDC PO SCH (08:46)
[2020-02-14] MEDS: Aspirin Enteric Coated 81 MG Tablet PO SCH (08:47)
[2020-02-14] MEDS: *HR* OxyCODONE Immed Rel 5 MG TABLET PO PRN (08:54)
[2020-02-14] MEDS: Cholecalciferol (D-3) 1,000 UNIT (25MCG) TABLET PO SCH (08:56)
[2020-02-14] MEDS ORDERED: Valproic Acid 250 MG CAPSULE PO SCH (17:00)
== END 2020-02-14 13:15 | disposition home or self-care (01) ==
LOC: EMEROOARM 11:57 → 3ANU 11:57 → SUATTDRO 16:03 → 3ANU 17:20
PROVIDERS: ADMIT Pharmacist; ATTEND Internal Medicine

== ENCOUNTER 2020-03-04 17:34 | Inpatient (IN) ==
[~2020-03-04 17:34] MED LIST: *HR* Etomidate 20 MG/10 ML AMPUL IVP ONE; *HR* Rocuronium Bromide 50 MG/5 ML VIAL IVP ONE
[2020-03-04] MEDS ORDERED: Morphine Sulfate 2 MG/ML SYRINGE IVP ONE (18:06)
[2020-03-04] MEDS ORDERED: *HR* LORazepam 2 MG/ML VIAL ONE (19:32)
[2020-03-04 19:55] LABS: Basophils % 0.4 %; Eosinophils % 0.3 %; Hematocrit 37.4 % (35.3-44.9); Hemoglobin 11.3 g/dL (11.5-15.4); Immature Granulocytes % 0.5 % (0-4); Lymphocytes % 32.5 %; Mean Corpuscular HGB Conc 30.2 g/dL (31.6-35.5); Mean Corpuscular Hemoglobin 27.2 pg (28.0-33.3); Mean Corpuscular Volume 89.9 fL (83.0-100.0); Mean Platelet Volume 10.8 fL (9.4-12.4); Monocytes # 1.1 K/mcL (0.0-1.3); Monocytes % 11.7 %; Platelet Count 280 K/mcL (140-400); Red Blood Count 4.16 M/mcL (3.82-4.97); Red Cell Distribution Width 19.3 % (11.5-14.5); Segmented Neutrophils % 54.6 %; White Blood Count 9.2 K/mcL (4.3-11.1)
[2020-03-04 19:56] LABS: INR 1.1; Prothrombin Time 12.2 Seconds (9.4-12.1)
[2020-03-04] MEDS ORDERED: Lactulose Oral Soln 20 GM/30 ML UDC PO ONE (20:13)
[2020-03-04 20:15] LABS: Alanine Aminotransferase 15 Units/L (7-52); Albumin 3.5 g/dL (3.5-5.7); Albumin/Globulin Ratio 0.9 (1.1-2.2); Alkaline Phosphatase 124 Units/L (34-104); Aspartate Amino Transferase 28 Units/L (13-39); BUN/Creatinine Ratio 10 (6-26); Bilirubin,Total 0.5 mg/dL (0.3-1.0); Blood Urea Nitrogen 18 mg/dL (6-20); Calcium 10.3 mg/dL (8.6-10.3); Carbon Dioxide 18 mEq/L (23-29); Chloride 105 mEq/L (98-107); Globulin 3.8 g/dL (2.4-3.5); Glucose 138 mg/dL (70-105); Osmolality,Calculated 298 (280-300); Potassium 3.4 mEq/L (3.5-5.1); Sodium 142 mEq/L (136-145); Total Protein 7.3 g/dL (6.4-8.9); Troponin I < 0.03 ng/mL (< 0.04); eGFR For African Americans 34 (> 60); eGFR For Non-African Americans 28 (> 60)
[2020-03-04] MEDS ORDERED: levETIRAcetam 1,000 MG in 0.9 % Sodium Chloride 100 ML IVPB STA (20:21)
[2020-03-04] MEDS: *HR* LORazepam 2 MG/ML VIAL ONE (20:26)
[2020-03-04 20:31] LABS: Bilirubin,Urine Negative (Negative); Blood,Urine Negative (Negative); Clarity,Urine Turbid (Clear); Color,Urine Yellow (Yellow); Glucose,Urine (UA) Normal (Normal); Hyaline Casts,Urine Many per lpf (None Seen); Ketones,Urine Negative (Negative); Leukocyte Esterase,Urine Negative (Negative); Mucus,Urine Few per lpf (None-Few); Nitrite,Urine Negative (Negative); Protein,Urine 50 mg/dL (Neg-Trace); Specific Gravity,Urine 1.022 (1.010-1.025); Squamous Epithelial Cell,Urine Few per hpf (None-Few)
[2020-03-04] MEDS ORDERED: Piperacillin/Tazobactam 3.375 GM in 0.9 % Sodium Chloride Mini Bag 100 ML IVPB ONE (20:31)
[2020-03-04] MEDS ORDERED: *HR* LORazepam 2 MG/ML VIAL IVP ONE (20:40)
[2020-03-04] MEDS ORDERED: FentaNYL (PF) 1,000 MCG/100 ML IV.SOLN IVC SCH (20:41)
[2020-03-04] MEDS: Midazolam HCl 50 MG/100 ML IV.SOLN IVC SCH (21:12)
[2020-03-04] MEDS ORDERED: Piperacillin/Tazobactam 3.375 GM in Water for inj. (sterile) 20 ML IVP ONE (21:23)
[2020-03-04] MEDS ORDERED: Naloxone 0.4 MG/ML INJ IVP PRN (22:47)
[2020-03-04 22:59] LABS: Adenovirus Not Detected (Not Detect); Bordetella Pertussis Not Detected (Not Detect); Chlamydophila pneumoniae Not Detected (Not Detect); Coronavirus 229E Not Detected (Not Detect); Coronavirus HKU1 Not Detected (Not Detect); Coronavirus NL63 Not Detected (Not Detect); Coronavirus OC43 Not Detected (Not Detect); Human Metapneumovirus Not Detected (Not Detect); Human Rhinovirus/Enterovirus Not Detected (Not Detect); Influenza A Subtype 2009 H1 Not Detected (Not Detect); Influenza B Not Detected (Not Detect); Mycoplasma pneumoniae Not Detected (Not Detect); Parainfluenza Virus 1 Not Detected (Not Detect); Parainfluenza Virus 2 Not Detected (Not Detect); Parainfluenza Virus 3 Not Detected (Not Detect); Parainfluenza Virus 4 Not Detected (Not Detect); Respiratory Syncytial Virus Not Detected (Not Detect); SARS-CoV-2 Not Detected (Not Detect)
[2020-03-04] MEDS ORDERED: 0.9 % Sodium Chloride 1,000 ML IVC SCH (23:00)
[2020-03-04] MEDS ORDERED: Potassium Chloride 40 MEQ, Lidocaine 1% 2 ML in 0.9 % Sodium Chloride 500 ML IVPB ONE (23:30)
[2020-03-04] MEDS ORDERED: Lactulose 200 GM, Sodium Chloride IRRigation 700 ML RC ONE (23:30)
[2020-03-05] MEDS ORDERED: *HR* Promethazine 25 MG/ML VIAL IVP ONE (00:44)
[2020-03-05 01:10] LABS: Amphetamine Screen,Urine Negative ng/mL (Cutoff=1000); Barbiturate Screen,Urine Negative ng/mL (Cutoff=200); Benzodiazepines Screen,Urine Negative ng/mL (Cutoff=200); Cannabinoid Screen,Urine Negative ng/mL (Cutoff = 50); Cocaine Screen,Urine Negative ng/mL (Cutoff= 300); Opiate Screen,Urine Positive ng/mL (Cutoff=300); Phencyclidine Screen,Urine Negative ng/mL (Cutoff=25)
[2020-03-05 01:13] LABS: ABG Base Excess 0 mEq/L (-2 to 3); ABG HCO3 27 mEq/L (21-27); ABG Oxygen Saturation 96 % (95-98); ABG PCO2 52 mmHg (35-45); ABG PH 7.32 pH Units (7.32-7.45); ABG PO2 93 mmHg (85-104); ABG TCO2 28 mEq/L (20-26); Blood Gas Modality ASSIST CONTROL; Blood Gas VT 400 cc
[2020-03-05] MEDS: *HR* Heparin 5,000 UNIT/ML VIAL SQ SCH ×5 (01:50→21:05)
[2020-03-05] MEDS ORDERED: Dexmedetomidine HCl 400 MCG/100 ML MLS IVC ONE (02:01)
[2020-03-05] MEDS: Dexmedetomidine HCl 400 MCG/100 ML MLS IVC SCH (02:08)
[2020-03-05] MEDS: FentaNYL (PF) 2,500 MCG/50 ML IV.SOLN IVC SCH ×2 (02:44→21:00)
[2020-03-05] MEDS ORDERED: 0.9 % Sodium Chloride 500 ML IVC ONE (03:09)
[2020-03-05 04:30] LABS: Protein/Creatinine Ratio,Urine 0.24 mg/mg (0.00-0.20); Sodium, Urine 40.2 mEq/L
[2020-03-05 06:39] LABS: ABG Base Excess 3 mEq/L (-2 to 3); ABG HCO3 29 mEq/L (21-27); ABG Oxygen Saturation 99 % (95-98); ABG PCO2 49 mmHg (35-45); ABG PH 7.39 pH Units (7.32-7.45); ABG PO2 118 mmHg (85-104); ABG TCO2 31 mEq/L (20-26); Blood Gas Modality ASSIST CONTROL; Blood Gas VT 400 cc
[2020-03-05] MEDS ORDERED: *HR* Promethazine 25 MG/ML VIAL IVP PRN ×2 (06:39→19:58)
[2020-03-05] MEDS ORDERED: Promethazine 25 MG in 0.9 % Sodium Chloride 50 ML IVPB PRN (06:47)
[2020-03-05 06:54] LABS: Basophils % 0.2 %; Hematocrit 33.3 % (35.3-44.9); Hemoglobin 10.6 g/dL (11.5-15.4); Immature Granulocytes % 0.2 % (0-4); Lymphocytes # 2.8 K/mcL (0.6-4.6); Lymphocytes % 24.2 %; Mean Corpuscular HGB Conc 31.8 g/dL (31.6-35.5); Mean Corpuscular Volume 84.9 fL (83.0-100.0); Mean Platelet Volume 10.1 fL (9.4-12.4); Monocytes # 1.5 K/mcL (0.0-1.3); Monocytes % 12.8 %; Neutrophils # 7.2 K/mcL (1.6-8.9); Platelet Count 247 K/mcL (140-400); Red Blood Count 3.92 M/mcL (3.82-4.97); Red Cell Distribution Width 18.6 % (11.5-14.5); Segmented Neutrophils % 62.6 %; White Blood Count 11.5 K/mcL (4.3-11.1)
[2020-03-05 07:16] LABS: Albumin 3.4 g/dL (3.5-5.7); Bilirubin,Total 0.4 mg/dL (0.3-1.0); Calcium 9.5 mg/dL (8.6-10.3); Globulin 3.4 g/dL (2.4-3.5); Magnesium 2.3 mg/dL (1.6-2.6); Potassium 3.9 mEq/L (3.5-5.1); Total Protein 6.8 g/dL (6.4-8.9)
[2020-03-05 07:28] LABS: Thyroid Stimulating Hormone 1.596 mcIU/mL (0.340-5.600)
[2020-03-05] MEDS: Norepinephrine 4 MG/254 ML IV.SOLN IVC SCH (08:03)
[2020-03-05] MEDS ORDERED: Octreotide 50 MCG/ML INJ IVP ONE (09:30)
[2020-03-05] MEDS: Octreotide 400 MCG in 0.9 % Sodium Chloride 100 ML IVC SCH ×2 (10:13→20:49)
[2020-03-05] MEDS: Pantoprazole 40 MG in 0.9 % Sodium Chloride Mini Bag 100 ML IVC SCH ×3 (10:14→20:49)
[2020-03-05] MEDS ORDERED: Perflutren Lipid Microsphere 1.3 ML in 0.9 % Sodium Chloride 8.7 ML IVP PRN (10:40)
[2020-03-05] MEDS ORDERED: Artificial Tears SOLN 15 ML BOTTLE BOTH EYES PRN (11:08)
[2020-03-05] MEDS: Artificial Tears SOLN 15 ML BOTTLE BOTH EYES SCH ×4 (13:00→23:13)
[2020-03-05] MEDS: MetroNIDAZOLE 500 MG/100 ML 500 MG/100 ML BAG IVPB SCH ×2 (13:00→21:18)
[2020-03-05] MEDS: Cefepime HCl 1,000 MG in Water for inj. (sterile) 10 ML IVP SCH ×2 (13:02→23:10)
[2020-03-05 13:16] LABS: Hepatitis B Surface Antigen Nonreactive (Nonreactive)
[2020-03-05] MEDS: Vancomycin 1,250 MG/262.5 ML IV.SOLN IVPB SCH (13:30)
[2020-03-05 13:46] LABS: Hepatitis B Core IgM Nonreactive (Nonreactive)
[2020-03-05 13:48] LABS: Hepatitis A Antibody IgM Nonreactive (Nonreactive)
[2020-03-05 15:21] LABS: Hepatitis C Virus Antibody Reactive (Nonreactive)
[2020-03-05] MEDS: Lactulose Oral Soln 20 GM/30 ML UDC PO SCH ×2 (15:56→16:00)
[2020-03-05] MEDS ORDERED: Famotidine 20 MG/2 ML VIAL IVP SCH (18:00)
[2020-03-05] MEDS ORDERED: Amiodarone Premix 360 MG/200 ML BAG IVC ONE (18:37)
[2020-03-05] MEDS ORDERED: Amiodarone Premix 150 MG/100 ML BAG IVPB ONE (18:37)
[2020-03-05] MEDS ORDERED: Amiodarone Premix 360 MG/200 ML BAG IVC SCH (18:45)
[2020-03-05 19:41] LABS: Basophils % 0.2 %; Eosinophils % 0.1 %; Hematocrit 33.5 % (35.3-44.9); Hemoglobin 10.5 g/dL (11.5-15.4); Immature Granulocytes % 0.4 % (0-4); Lymphocytes # 2.6 K/mcL (0.6-4.6); Lymphocytes % 19.3 %; Mean Corpuscular HGB Conc 31.3 g/dL (31.6-35.5); Mean Corpuscular Hemoglobin 26.9 pg (28.0-33.3); Mean Corpuscular Volume 85.9 fL (83.0-100.0); Mean Platelet Volume 10.5 fL (9.4-12.4); Monocytes # 2.1 K/mcL (0.0-1.3); Monocytes % 15.6 %; Neutrophils # 8.6 K/mcL (1.6-8.9); Platelet Count 266 K/mcL (140-400); Segmented Neutrophils % 64.4 %; White Blood Count 13.3 K/mcL (4.3-11.1)
[2020-03-05 20:00] LABS: Potassium 3.8 mEq/L (3.5-5.1)
[2020-03-05] MEDS: Chlorhexidine Rinse 15 ML MOUTHWASH MM SCH ×2 (20:19→21:05)
[2020-03-05] MEDS: *HR* LORazepam 2 MG/ML VIAL ONE (20:20)
[2020-03-05] MEDS ORDERED: *HR* LORazepam 2 MG/ML VIAL IVP ONE (21:42)
[2020-03-05] MEDS ORDERED: Promethazine 25 MG in 0.9 % Sodium Chloride 50 ML IVPB ONE (22:09)
[2020-03-06] MEDS: Pantoprazole 40 MG in 0.9 % Sodium Chloride Mini Bag 100 ML IVC SCH ×2 (01:45→07:46)
[2020-03-06] MEDS: MetroNIDAZOLE 500 MG/100 ML 500 MG/100 ML BAG IVPB SCH ×3 (02:41→19:22)
[2020-03-06] MEDS: Dexmedetomidine HCl 400 MCG/100 ML MLS IVC SCH (02:49)
[2020-03-06] MEDS: Midazolam HCl 50 MG/100 ML IV.SOLN IVC SCH (02:49)
[2020-03-06] MEDS: Artificial Tears SOLN 15 ML BOTTLE BOTH EYES SCH ×3 (03:30→12:52)
[2020-03-06] MEDS: Octreotide 400 MCG in 0.9 % Sodium Chloride 100 ML IVC SCH (04:04)
[2020-03-06 04:35] LABS: ABG Base Excess 4 mEq/L (-2 to 3); ABG HCO3 30 mEq/L (21-27); ABG Oxygen Saturation 86 % (95-98); ABG PCO2 52 mmHg (35-45); ABG PH 7.36 pH Units (7.32-7.45); ABG PO2 55 mmHg (85-104); ABG TCO2 31 mEq/L (20-26); Blood Gas Modality ASSIST CONTROL; Blood Gas VT 400 cc
[2020-03-06 04:36] LABS: Basophils # 0.1 K/mcL (0.0-0.2); Basophils % 0.4 %; Eosinophils # 0.1 K/mcL (0.0-0.6); Eosinophils % 0.5 %; Hematocrit 31.5 % (35.3-44.9); Hemoglobin 9.9 g/dL (11.5-15.4); Immature Granulocytes % 0.5 % (0-4); Lymphocytes # 3.1 K/mcL (0.6-4.6); Lymphocytes % 23.5 %; Mean Corpuscular HGB Conc 31.4 g/dL (31.6-35.5); Mean Corpuscular Hemoglobin 27.5 pg (28.0-33.3); Mean Corpuscular Volume 87.5 fL (83.0-100.0); Mean Platelet Volume 10.8 fL (9.4-12.4); Monocytes # 1.8 K/mcL (0.0-1.3); Neutrophils # 8.1 K/mcL (1.6-8.9); Platelet Count 243 K/mcL (140-400); Red Cell Distribution Width 18.8 % (11.5-14.5); Segmented Neutrophils % 61.1 %; White Blood Count 13.2 K/mcL (4.3-11.1)
[2020-03-06 04:55] LABS: Bilirubin,Total 0.5 mg/dL (0.3-1.0); Calcium 8.6 mg/dL (8.6-10.3); Globulin 3.1 g/dL (2.4-3.5); Magnesium 2.1 mg/dL (1.6-2.6); Potassium 3.7 mEq/L (3.5-5.1); Total Protein 6.1 g/dL (6.4-8.9)
[2020-03-06] MEDS: *HR* Heparin 5,000 UNIT/ML VIAL SQ SCH ×3 (06:28→23:07)
[2020-03-06] MEDS: Lactulose Oral Soln 20 GM/30 ML UDC PO SCH ×3 (07:47→20:11)
[2020-03-06] MEDS: Chlorhexidine Rinse 15 ML MOUTHWASH MM SCH (07:47)
[2020-03-06] MEDS ORDERED: Aminoglycoside Consult 1 EACH MC ONE (09:03)
[2020-03-06] MEDS: Cefepime HCl 2,000 MG in Water for inj. (sterile) 20 ML IVP SCH ×2 (12:51→23:45)
[2020-03-06] MEDS: Vancomycin 1,250 MG/262.5 ML IV.SOLN IVPB SCH (12:53)
[2020-03-06] MEDS: Pantoprazole 40 MG VIAL IVP SCH (16:57)
[2020-03-06] MEDS: Norepinephrine 4 MG/254 ML IV.SOLN IVC SCH (19:59)
[2020-03-06] MEDS: Gabapentin 300 MG CAPSULE PO SCH (20:11)
[2020-03-06] MEDS: *HR* OxyCODONE Immed Rel 5 MG TABLET PO PRN (20:11)
[2020-03-07] MEDS ORDERED: amLODIPine 5 MG TABLET PO ONE (00:09)
[2020-03-07] MEDS: MetroNIDAZOLE 500 MG/100 ML 500 MG/100 ML BAG IVPB SCH ×2 (03:56→10:06)
[2020-03-07 04:14] LABS: Basophils # 0.1 K/mcL (0.0-0.2); Basophils % 0.6 %; Eosinophils # 0.1 K/mcL (0.0-0.6); Eosinophils % 0.7 %; Hematocrit 32.5 % (35.3-44.9); Hemoglobin 10.1 g/dL (11.5-15.4); Immature Granulocytes % 0.5 % (0-4); Lymphocytes # 2.6 K/mcL (0.6-4.6); Lymphocytes % 22.3 %; Mean Corpuscular HGB Conc 31.1 g/dL (31.6-35.5); Mean Corpuscular Hemoglobin 28.1 pg (28.0-33.3); Mean Corpuscular Volume 90.5 fL (83.0-100.0); Mean Platelet Volume 11.1 fL (9.4-12.4); Monocytes # 1.7 K/mcL (0.0-1.3); Monocytes % 14.6 %; Neutrophils # 7.1 K/mcL (1.6-8.9); Platelet Count 222 K/mcL (140-400); Red Blood Count 3.59 M/mcL (3.82-4.97); Red Cell Distribution Width 18.7 % (11.5-14.5); Segmented Neutrophils % 61.3 %; White Blood Count 11.6 K/mcL (4.3-11.1)
[2020-03-07 04:31] LABS: BUN/Creatinine Ratio 19 (6-26); Blood Urea Nitrogen 15 mg/dL (6-20); Calcium 8.5 mg/dL (8.6-10.3); Carbon Dioxide 30 mEq/L (23-29); Chloride 107 mEq/L (98-107); Glucose 114 mg/dL (70-105); Osmolality,Calculated 296 (280-300); Sodium 142 mEq/L (136-145); eGFR For African Americans > 60 (> 60); eGFR For Non-African Americans > 60 (> 60)
[2020-03-07] MEDS: *HR* Heparin 5,000 UNIT/ML VIAL SQ SCH ×3 (06:15→21:05)
[2020-03-07] MEDS: Pantoprazole 40 MG VIAL IVP SCH (06:15)
[2020-03-07] MEDS: Dexmedetomidine HCl 400 MCG/100 ML MLS IVC SCH (08:11)
[2020-03-07] MEDS: Norepinephrine 4 MG/254 ML IV.SOLN IVC SCH (08:11)
[2020-03-07] MEDS: Gabapentin 300 MG CAPSULE PO SCH ×3 (08:31→21:04)
[2020-03-07] MEDS: Lactulose Oral Soln 20 GM/30 ML UDC PO SCH ×3 (08:31→21:05)
[2020-03-07] MEDS ORDERED: amLODIPine 5 MG TABLET PO SCH (09:00)
[2020-03-07] MEDS: *HR* OxyCODONE Immed Rel 5 MG TABLET PO PRN (10:06)
[2020-03-07] MEDS ORDERED: Cefepime HCl 2,000 MG in Water for inj. (sterile) 20 ML IVP SCH (14:00)
[2020-03-07] MEDS ORDERED: MetroNIDAZOLE 500 MG/100 ML 500 MG/100 ML BAG IVPB SCH (18:00)
[2020-03-07] MEDS ORDERED: levETIRAcetam 250 MG TABLET PO SCH (18:00)
[2020-03-07] MEDS ORDERED: Naloxone 0.4 MG/ML INJ IVP PRN (19:38)
[2020-03-07] MEDS: Pantoprazole 40 MG in 0.9 % Sodium Chloride Mini Bag 100 ML IVC SCH (19:42)
[2020-03-07] MEDS: Artificial Tears SOLN 15 ML BOTTLE BOTH EYES SCH (19:42)
[2020-03-07] MEDS: Vancomycin 1,250 MG/262.5 ML IV.SOLN IVPB SCH (19:43)
[2020-03-07] MEDS: Cefepime HCl 2,000 MG in Water for inj. (sterile) 20 ML IVP SCH (19:43)
[2020-03-08] MEDS: *HR* Heparin 5,000 UNIT/ML VIAL SQ SCH ×3 (06:22→21:45)
[2020-03-08] MEDS: levETIRAcetam 250 MG TABLET PO SCH ×2 (06:22→17:51)
[2020-03-08] MEDS: Lactulose Oral Soln 20 GM/30 ML UDC PO SCH ×3 (09:08→21:44)
[2020-03-08] MEDS: Gabapentin 300 MG CAPSULE PO SCH ×3 (09:08→21:44)
[2020-03-08] MEDS: amLODIPine 5 MG TABLET PO SCH (09:08)
[2020-03-08 09:27] LABS: Basophils # 0.1 K/mcL (0.0-0.2); Basophils % 0.6 %; Eosinophils # 0.9 K/mcL (0.0-0.6); Eosinophils % 8.5 %; Hemoglobin 11.5 g/dL (11.5-15.4); Immature Granulocytes % 0.2 % (0-4); Lymphocytes # 3.7 K/mcL (0.6-4.6); Lymphocytes % 34.7 %; Mean Corpuscular HGB Conc 31.1 g/dL (31.6-35.5); Mean Corpuscular Hemoglobin 27.4 pg (28.0-33.3); Mean Corpuscular Volume 88.1 fL (83.0-100.0); Monocytes # 1.4 K/mcL (0.0-1.3); Monocytes % 13.5 %; Neutrophils # 4.6 K/mcL (1.6-8.9); Platelet Count 248 K/mcL (140-400); Red Cell Distribution Width 18.1 % (11.5-14.5); Segmented Neutrophils % 42.5 %; White Blood Count 10.7 K/mcL (4.3-11.1)
[2020-03-08 09:36] LABS: BUN/Creatinine Ratio 16 (6-26); Blood Urea Nitrogen 10 mg/dL (6-20); Calcium 8.6 mg/dL (8.6-10.3); Carbon Dioxide 32 mEq/L (23-29); Chloride 102 mEq/L (98-107); Glucose 90 mg/dL (70-105); Osmolality,Calculated 287 (280-300); Sodium 139 mEq/L (136-145); eGFR For African Americans > 60 (> 60); eGFR For Non-African Americans > 60 (> 60)
[2020-03-08] MEDS: *HR* OxyCODONE Immed Rel 5 MG TABLET PO PRN (21:56)
[2020-03-08] MEDS ORDERED: *HR* OxyCODONE Immed Rel 5 MG TABLET PO ONE (22:28)
[2020-03-09 01:33] LABS: Basophils # 0.1 K/mcL (0.0-0.2); Basophils % 0.7 %; Eosinophils # 0.8 K/mcL (0.0-0.6); Eosinophils % 8.4 %; Hematocrit 36.7 % (35.3-44.9); Hemoglobin 11.3 g/dL (11.5-15.4); Immature Granulocytes % 0.3 % (0-4); Lymphocytes # 3.6 K/mcL (0.6-4.6); Mean Corpuscular HGB Conc 30.8 g/dL (31.6-35.5); Mean Corpuscular Hemoglobin 26.9 pg (28.0-33.3); Mean Corpuscular Volume 87.4 fL (83.0-100.0); Mean Platelet Volume 10.7 fL (9.4-12.4); Monocytes # 1.4 K/mcL (0.0-1.3); Monocytes % 14.9 %; Neutrophils # 3.5 K/mcL (1.6-8.9); Platelet Count 236 K/mcL (140-400); Red Cell Distribution Width 18.3 % (11.5-14.5); Segmented Neutrophils % 37.7 %; White Blood Count 9.4 K/mcL (4.3-11.1)
[2020-03-09 01:51] LABS: BUN/Creatinine Ratio 18 (6-26); Blood Urea Nitrogen 12 mg/dL (6-20); Carbon Dioxide 30 mEq/L (23-29); Chloride 103 mEq/L (98-107); Glucose 101 mg/dL (70-105); Osmolality,Calculated 288 (280-300); Potassium 3.6 mEq/L (3.5-5.1); Sodium 139 mEq/L (136-145); eGFR For African Americans > 60 (> 60); eGFR For Non-African Americans > 60 (> 60)
[2020-03-09] MEDS: *HR* Heparin 5,000 UNIT/ML VIAL SQ SCH ×3 (05:20→20:00)
[2020-03-09] MEDS: levETIRAcetam 250 MG TABLET PO SCH ×2 (05:21→17:13)
[2020-03-09] MEDS: Lactulose Oral Soln 20 GM/30 ML UDC PO SCH ×3 (08:02→20:00)
[2020-03-09] MEDS: Gabapentin 300 MG CAPSULE PO SCH ×3 (08:03→20:00)
[2020-03-09] MEDS: amLODIPine 5 MG TABLET PO SCH (08:03)
[2020-03-09] MEDS: *HR* OxyCODONE Immed Rel 5 MG TABLET PO PRN (20:00)
[2020-03-10] MEDS ORDERED: Acetaminophen 325 MG TABLET PO ONE (00:06)
[2020-03-10 01:04] LABS: Basophils % 0.5 %; Eosinophils % 11.5 %; Hematocrit 36.1 % (35.3-44.9); Hemoglobin 11.2 g/dL (11.5-15.4); Immature Granulocytes % 0.2 % (0-4); Lymphocytes # 3.6 K/mcL (0.6-4.6); Lymphocytes % 42.6 %; Mean Corpuscular Hemoglobin 27.1 pg (28.0-33.3); Mean Corpuscular Volume 87.2 fL (83.0-100.0); Mean Platelet Volume 10.9 fL (9.4-12.4); Monocytes # 1.2 K/mcL (0.0-1.3); Monocytes % 13.6 %; Neutrophils # 2.7 K/mcL (1.6-8.9); Platelet Count 249 K/mcL (140-400); Red Blood Count 4.14 M/mcL (3.82-4.97); Red Cell Distribution Width 18.1 % (11.5-14.5); Segmented Neutrophils % 31.6 %; White Blood Count 8.5 K/mcL (4.3-11.1)
[2020-03-10 02:27] LABS: BUN/Creatinine Ratio 16 (6-26); Blood Urea Nitrogen 11 mg/dL (6-20); Carbon Dioxide 27 mEq/L (23-29); Chloride 106 mEq/L (98-107); Glucose 135 mg/dL (70-105); Osmolality,Calculated 289 (280-300); Potassium 3.6 mEq/L (3.5-5.1); Sodium 139 mEq/L (136-145); eGFR For African Americans > 60 (> 60); eGFR For Non-African Americans > 60 (> 60)
[2020-03-10] MEDS: levETIRAcetam 250 MG TABLET PO SCH ×2 (06:47→17:57)
[2020-03-10] MEDS: *HR* Heparin 5,000 UNIT/ML VIAL SQ SCH ×3 (06:48→20:20)
[2020-03-10] MEDS: Lactulose Oral Soln 20 GM/30 ML UDC PO SCH ×3 (07:53→20:20)
[2020-03-10] MEDS: Gabapentin 300 MG CAPSULE PO SCH ×3 (07:54→20:20)
[2020-03-10] MEDS: amLODIPine 5 MG TABLET PO SCH (07:54)
[2020-03-10] MEDS: *HR* OxyCODONE Immed Rel 5 MG TABLET PO PRN (13:59)
[2020-03-11] MEDS: levETIRAcetam 250 MG TABLET PO SCH ×2 (05:42→17:07)
[2020-03-11] MEDS: *HR* Heparin 5,000 UNIT/ML VIAL SQ SCH ×3 (05:42→21:30)
[2020-03-11] MEDS: amLODIPine 5 MG TABLET PO SCH (07:32)
[2020-03-11] MEDS: Gabapentin 300 MG CAPSULE PO SCH ×3 (07:32→21:29)
[2020-03-11] MEDS: Lactulose Oral Soln 20 GM/30 ML UDC PO SCH ×3 (07:33→21:30)
[2020-03-11] MEDS: *HR* OxyCODONE Immed Rel 5 MG TABLET PO PRN (07:46)
[2020-03-11] MEDS: *HR* OxyCODONE Immed Rel 5 MG TABLET PO SCH ×2 (14:47→21:29)
[2020-03-12] MEDS: Morphine Sulfate 2 MG/ML SYRINGE IVP PRN ×2 (01:25→02:26)
[2020-03-12] MEDS: *HR* Heparin 5,000 UNIT/ML VIAL SQ SCH ×2 (06:11→13:53)
[2020-03-12] MEDS: levETIRAcetam 250 MG TABLET PO SCH (06:11)
[2020-03-12] MEDS: Gabapentin 300 MG CAPSULE PO SCH (08:53)
[2020-03-12] MEDS: Lactulose Oral Soln 20 GM/30 ML UDC PO SCH (08:53)
[2020-03-12] MEDS: amLODIPine 5 MG TABLET PO SCH (08:53)
[2020-03-12] MEDS: *HR* OxyCODONE Immed Rel 5 MG TABLET PO SCH (08:54)
[2020-03-12] MEDS ORDERED: Multivit/Ca/Min/Fe/FA 1 TAB TABLET PO SCH (10:00)
[2020-03-12 10:25] VITALS: BP 111/64
[2020-03-12] MEDS ORDERED: *HR* OxyCODONE Immed Rel 5 MG TABLET PO SCH (13:00)
[2020-03-13] MEDS ORDERED: Thiamine (B-1) 100 MG TABLET PO SCH (09:00)
[2020-03-13] MEDS ORDERED: Folic Acid 1 MG TABLET PO SCH (09:00)
== END 2020-03-12 16:23 | DRG 720 ==
LOC: EMEROOARM 17:34 → SUATTDRO 23:25 → ICNU 23:25 → 3ANU 03-07 18:46
PROVIDERS: ADMIT Student in an Organized Health Care Education/Training Program; ATTEND Internal Medicine

== ENCOUNTER 2020-04-14 22:23 | Inpatient (IN) ==
[2020-04-14] MEDS ORDERED: 0.9 % Sodium Chloride 1,000 ML IVC ONE (22:29)
[2020-04-14] MEDS ORDERED: levETIRAcetam 1,000 MG in 0.9 % Sodium Chloride 100 ML IVPB ONE (22:32)
[2020-04-15 00:13] LABS: Prothrombin Time 11.3 Seconds (9.4-12.1)
[2020-04-15 00:15] LABS: Activated Partial Thrombo Time 33.5 Seconds (26.0-36.0); Basophils # 0.1 K/mcL (0.0-0.2); Basophils % 0.6 %; Eosinophils # 0.2 K/mcL (0.0-0.6); Eosinophils % 2.7 %; Hematocrit 34.9 % (35.3-44.9); Hemoglobin 10.7 g/dL (11.5-15.4); Immature Granulocytes % 0.1 % (0-4); Lymphocytes # 3.3 K/mcL (0.6-4.6); Lymphocytes % 38.3 %; Mean Corpuscular HGB Conc 30.7 g/dL (31.6-35.5); Mean Corpuscular Hemoglobin 27.3 pg (28.0-33.3); Mean Platelet Volume 10.6 fL (9.4-12.4); Monocytes # 1.1 K/mcL (0.0-1.3); Monocytes % 13.1 %; Neutrophils # 3.9 K/mcL (1.6-8.9); Platelet Count 205 K/mcL (140-400); Red Blood Count 3.92 M/mcL (3.82-4.97); Red Cell Distribution Width 18.3 % (11.5-14.5); Segmented Neutrophils % 45.2 %; White Blood Count 8.6 K/mcL (4.3-11.1)
[2020-04-15 00:26] LABS: Alanine Aminotransferase 31 Units/L (7-52); Albumin 3.6 g/dL (3.5-5.7); Alkaline Phosphatase 133 Units/L (34-104); Aspartate Amino Transferase 40 Units/L (13-39); BUN/Creatinine Ratio 16 (6-26); Bilirubin,Indirect 0.3 mg/dL (0.0-1.0); Bilirubin,Total 0.3 mg/dL (0.3-1.0); Blood Urea Nitrogen 25 mg/dL (6-20); Calcium 10.1 mg/dL (8.6-10.3); Carbon Dioxide 18 mEq/L (23-29); Chloride 102 mEq/L (98-107); Creatine Kinase 55 Units/L (30-223); Ethanol < 10 mg/dL (Less than 10); Globulin 3.6 g/dL (2.4-3.5); Glucose 155 mg/dL (70-105); Osmolality,Calculated 292 (280-300); Potassium 3.9 mEq/L (3.5-5.1); Sodium 137 mEq/L (136-145); Total Protein 7.2 g/dL (6.4-8.9); eGFR For African Americans 42 (> 60); eGFR For Non-African Americans 35 (> 60)
[2020-04-15 00:27] LABS: Troponin I < 0.03 ng/mL (< 0.04)
[2020-04-15] MEDS ORDERED: *HR* LORazepam 2 MG/ML VIAL ONE ×3 (00:35→11:29)
[2020-04-15 00:40] LABS: Thyroid Stimulating Hormone 1.108 mcIU/mL (0.340-5.600)
[2020-04-15] MEDS ORDERED: *HR* LORazepam 2 MG/ML VIAL IVP ONE ×2 (00:40→10:48)
[2020-04-15] MEDS ORDERED: levETIRAcetam 1,000 MG in 0.9 % Sodium Chloride 100 ML IVPB ONE (00:40)
[2020-04-15] MEDS ORDERED: SODIUM CHLORIDE 0.9% IVPB ONE (00:40)
[2020-04-15] MEDS ORDERED: [UNRECOGNIZED DRUG - OTHER] IVPB ONE (00:40)
[2020-04-15] MEDS ORDERED: FOSPHENYTOIN IVPB ONE (00:40)
[2020-04-15 01:22] LABS: Bilirubin,Urine Negative (Negative); Blood,Urine Trace (Negative); Clarity,Urine Clear (Clear); Color,Urine Yellow (Yellow); Glucose,Urine (UA) Normal (Normal); Hyaline Casts,Urine Moderate per lpf (None Seen); Ketones,Urine Negative (Negative); Leukocyte Esterase,Urine Negative (Negative); Mucus,Urine Few per lpf (None-Few); Nitrite,Urine Negative (Negative); Protein,Urine 70 mg/dL (Neg-Trace); RBC,Urine 15-30 per hpf (0-3); Specific Gravity,Urine 1.027 (1.010-1.025); Urobilinogen,Urine Normal (Normal); WBC,Urine 0-3 per hpf (0-3)
[2020-04-15 01:34] LABS: Amphetamine Screen,Urine Negative ng/mL (Cutoff=1000); Barbiturate Screen,Urine Positive ng/mL (Cutoff=200); Benzodiazepines Screen,Urine Negative ng/mL (Cutoff=200); Cannabinoid Screen,Urine Negative ng/mL (Cutoff = 50); Cocaine Screen,Urine Negative ng/mL (Cutoff= 300); Opiate Screen,Urine Negative ng/mL (Cutoff=300); Phencyclidine Screen,Urine Negative ng/mL (Cutoff=25)
[2020-04-15] MEDS ORDERED: 0.9 % Sodium Chloride 1,000 ML ONE (03:11)
[2020-04-15] MEDS ORDERED: Naloxone 0.4 MG/ML INJ IVP PRN (03:42)
[2020-04-15] MEDS ORDERED: Lactulose 200 GM, Sodium Chloride IRRigation 700 ML RC ONE (03:43)
[2020-04-15] MEDS ORDERED: *HR* LORazepam 2 MG/ML VIAL IVP PRN ×2 (03:46→11:45)
[2020-04-15 04:00] LABS: Basophils % 0.2 %; Hematocrit 33.1 % (35.3-44.9); Hemoglobin 10.4 g/dL (11.5-15.4); Immature Granulocytes % 0.2 % (0-4); Lymphocytes # 1.5 K/mcL (0.6-4.6); Mean Corpuscular HGB Conc 31.4 g/dL (31.6-35.5); Mean Corpuscular Hemoglobin 27.8 pg (28.0-33.3); Mean Corpuscular Volume 88.5 fL (83.0-100.0); Mean Platelet Volume 11.7 fL (9.4-12.4); Monocytes # 0.4 K/mcL (0.0-1.3); Monocytes % 5.1 %; Neutrophils # 6.3 K/mcL (1.6-8.9); Platelet Count 201 K/mcL (140-400); Red Blood Count 3.74 M/mcL (3.82-4.97); Red Cell Distribution Width 18.2 % (11.5-14.5); Segmented Neutrophils % 76.5 %; White Blood Count 8.3 K/mcL (4.3-11.1)
[2020-04-15 04:20] LABS: Albumin 3.4 g/dL (3.5-5.7); Albumin/Globulin Ratio 0.9 (1.1-2.2); Bilirubin,Total 0.3 mg/dL (0.3-1.0); Calcium 9.8 mg/dL (8.6-10.3); Globulin 3.7 g/dL (2.4-3.5); Potassium 4.2 mEq/L (3.5-5.1); Total Protein 7.1 g/dL (6.4-8.9)
[2020-04-15] MEDS ORDERED: *HR* Promethazine 25 MG/ML VIAL IVP PRN (04:37)
[2020-04-15] MEDS ORDERED: Dextrose Gel 15 GM/37.5 ML TUBE PO PRN ×2 (05:22)
[2020-04-15] MEDS ORDERED: D5% in Water 1,000 ML IVC PRN (05:22)
[2020-04-15] MEDS ORDERED: *HR* Dextrose 50 % in Water (Vial) 50 ML VIAL IVP PRN (05:22)
[2020-04-15] MEDS: 0.9 % Sodium Chloride 1,000 ML IVC SCH ×2 (05:25→11:53)
[2020-04-15 05:34] LABS: Adenovirus Not Detected (Not Detect); Bordetella Pertussis Not Detected (Not Detect); Chlamydophila pneumoniae Not Detected (Not Detect); Coronavirus 229E Not Detected (Not Detect); Coronavirus HKU1 Not Detected (Not Detect); Coronavirus NL63 Not Detected (Not Detect); Coronavirus OC43 Not Detected (Not Detect); Human Metapneumovirus Not Detected (Not Detect); Human Rhinovirus/Enterovirus Not Detected (Not Detect); Influenza A Subtype 2009 H1 Not Detected (Not Detect); Influenza B Not Detected (Not Detect); Mycoplasma pneumoniae Not Detected (Not Detect); Parainfluenza Virus 1 Not Detected (Not Detect); Parainfluenza Virus 2 Not Detected (Not Detect); Parainfluenza Virus 3 Not Detected (Not Detect); Parainfluenza Virus 4 Not Detected (Not Detect); Respiratory Syncytial Virus Not Detected (Not Detect); SARS-CoV-2 Not Detected (Not Detect)
[2020-04-15] MEDS: Insulin LISPRO 300 UNITS/3 ML VIAL SQ SCH ×3 (06:24→18:16)
[2020-04-15] MEDS ORDERED: Valproic Acid INJ 800 MG in 0.9 % Sodium Chloride 100 ML IVPB ONE (08:30)
[2020-04-15] MEDS ORDERED: Fosphenytoin 1,000 MG.PE in 0.9 % Sodium Chloride 50 ML IVPB ONE (10:49)
[2020-04-15] MEDS ORDERED: PHENYTOIN IVPB ONE (12:13)
[2020-04-15] MEDS ORDERED: LORazepam 20 MG in 0.9 % Sodium Chloride Excel Bg 240 ML IVC SCH (12:30)
[2020-04-15] MEDS ORDERED: LORazepam 20 MG in D5% in Water (EXCEL) 240 ML IVC SCH (13:00)
[2020-04-15 18:16] VITALS: BP 146/32
[2020-04-15] MEDS ORDERED: Valproic Acid INJ 500 MG in 0.9 % Sodium Chloride 100 ML IVPB SCH (21:00)
[2020-04-15] MEDS ORDERED: *HR* Heparin 5,000 UNIT/ML VIAL SQ SCH (22:00)
[2020-04-19] MEDS ORDERED: Cholecalciferol (D-3) 1,000 UNIT (25MCG) TABLET PO SCH (09:00)
== END 2020-04-15 18:53 | disposition short-term general hospital (02) | DRG 53 ==
LOC: 3BNU 22:23 → EMEROOARM 22:23 → 3BNU 04-15 03:00 → ICNU 04-15 03:54
PROVIDERS: ADMIT Internal Medicine; ATTEND Internal Medicine

== ENCOUNTER 2020-05-11 01:44 | Inpatient (IN) ==
[2020-05-11] MEDS ORDERED: 0.9 % Sodium Chloride 1,000 ML IVC ONE (02:36)
[2020-05-11] MEDS ORDERED: Isovue-370 500 ML BOTTLE IVP ONE (02:38)
[2020-05-11] MEDS ORDERED: Morphine Sulfate 2 MG/ML SYRINGE IVP ONE ×2 (02:40→05:18)
[2020-05-11] MEDS ORDERED: Promethazine 12.5 MG in 0.9 % Sodium Chloride 50 ML IVPB PRN (03:18)
[2020-05-11 03:32] LABS: Basophils # 0.1 K/mcL (0.0-0.2); Basophils % 0.8 %; Eosinophils # 0.4 K/mcL (0.0-0.6); Eosinophils % 3.2 %; Hematocrit 35.2 % (35.3-44.9); Hemoglobin 11.3 g/dL (11.5-15.4); Immature Granulocytes % 0.2 % (0-4); Lymphocytes % 25.8 %; Mean Corpuscular HGB Conc 32.1 g/dL (31.6-35.5); Mean Corpuscular Hemoglobin 28.3 pg (28.0-33.3); Mean Corpuscular Volume 88.2 fL (83.0-100.0); Mean Platelet Volume 10.5 fL (9.4-12.4); Monocytes # 1.9 K/mcL (0.0-1.3); Monocytes % 16.4 %; Neutrophils # 6.2 K/mcL (1.6-8.9); Platelet Count 241 K/mcL (140-400); Red Blood Count 3.99 M/mcL (3.82-4.97); Red Cell Distribution Width 18.4 % (11.5-14.5); Segmented Neutrophils % 53.6 %; White Blood Count 11.5 K/mcL (4.3-11.1)
[2020-05-11] MEDS ORDERED: 0.9 % Sodium Chloride 1,000 ML IV ONE (03:33)
[2020-05-11] MEDS: *HR* Promethazine 25 MG/ML VIAL IVP PRN ×3 (03:37→20:53)
[2020-05-11 03:49] LABS: BUN/Creatinine Ratio 17 (6-26); Blood Urea Nitrogen 12 mg/dL (6-20); Calcium 9.3 mg/dL (8.6-10.3); Carbon Dioxide 22 mEq/L (23-29); Chloride 107 mEq/L (98-107); Glucose 102 mg/dL (70-105); Osmolality,Calculated 284 (280-300); Potassium 3.6 mEq/L (3.5-5.1); Sodium 137 mEq/L (136-145); eGFR For African Americans > 60 (> 60); eGFR For Non-African Americans > 60 (> 60)
[2020-05-11] MEDS ORDERED: Ampicillin/Sulbactam 3,000 MG in 0.9 % Sodium Chloride Mini Bag 100 ML IVPB ONE (04:57)
[2020-05-11] MEDS ORDERED: Naloxone 0.4 MG/ML INJ IVP PRN (06:03)
[2020-05-11] MEDS ORDERED: Ringers Solution, Lactated 1,000 ML IVC SCH (06:15)
[2020-05-11] MEDS ORDERED: Ipratropium/Albuterol Neb 3 ML IH PRN (10:01)
[2020-05-11] MEDS: Nicotine 14 MG PATCH.TD24 TD SCH (10:11)
[2020-05-11] MEDS: Ringers Solution, Lactated 1,000 ML IVC SCH ×2 (10:15→20:54)
[2020-05-11] MEDS ORDERED: Ampicillin/Sulbactam 1,500 MG in 0.9 % Sodium Chloride Mini Bag 100 ML IVPB SCH (12:00)
[2020-05-11] MEDS: Ampicillin/Sulbactam 3,000 MG in 0.9 % Sodium Chloride Mini Bag 100 ML IVPB SCH ×3 (12:55→23:45)
[2020-05-11] MEDS ORDERED: Budesonide/Formoterol 80/4.5 1 PUFF INH IH PRN (13:57)
[2020-05-11] MEDS: Gabapentin 300 MG CAPSULE PO SCH ×2 (15:07→20:54)
[2020-05-11] MEDS: Lactulose Oral Soln 20 GM/30 ML UDC PO SCH ×2 (15:07→20:54)
[2020-05-11] MEDS: *HR* Heparin 5,000 UNIT/ML VIAL SQ SCH (17:38)
[2020-05-11] MEDS: Ipratropium 1 PUFF INHALER IH SCH (20:13)
[2020-05-12 02:27] LABS: Basophils # 0.1 K/mcL (0.0-0.2); Eosinophils # 0.5 K/mcL (0.0-0.6); Eosinophils % 6.9 %; Hematocrit 32.9 % (35.3-44.9); Hemoglobin 10.6 g/dL (11.5-15.4); Immature Granulocytes % 0.1 % (0-4); Lymphocytes # 3.7 K/mcL (0.6-4.6); Lymphocytes % 51.9 %; Mean Corpuscular HGB Conc 32.2 g/dL (31.6-35.5); Mean Corpuscular Hemoglobin 29.1 pg (28.0-33.3); Mean Corpuscular Volume 90.4 fL (83.0-100.0); Mean Platelet Volume 10.5 fL (9.4-12.4); Monocytes # 1.2 K/mcL (0.0-1.3); Monocytes % 16.8 %; Neutrophils # 1.7 K/mcL (1.6-8.9); Platelet Count 213 K/mcL (140-400); Red Blood Count 3.64 M/mcL (3.82-4.97); Red Cell Distribution Width 18.3 % (11.5-14.5); Segmented Neutrophils % 23.3 %; White Blood Count 7.1 K/mcL (4.3-11.1)
[2020-05-12 02:46] LABS: BUN/Creatinine Ratio 13 (6-26); Blood Urea Nitrogen 8 mg/dL (6-20); Calcium 8.4 mg/dL (8.6-10.3); Carbon Dioxide 23 mEq/L (23-29); Chloride 109 mEq/L (98-107); Glucose 76 mg/dL (70-105); Magnesium 1.5 mg/dL (1.6-2.6); Osmolality,Calculated 285 (280-300); Potassium 3.7 mEq/L (3.5-5.1); Sodium 139 mEq/L (136-145); eGFR For African Americans > 60 (> 60); eGFR For Non-African Americans > 60 (> 60)
[2020-05-12] MEDS: Ampicillin/Sulbactam 3,000 MG in 0.9 % Sodium Chloride Mini Bag 100 ML IVPB SCH ×3 (05:50→17:41)
[2020-05-12] MEDS: *HR* Heparin 5,000 UNIT/ML VIAL SQ SCH ×2 (05:51→17:40)
[2020-05-12] MEDS: Nicotine 14 MG PATCH.TD24 TD SCH (08:20)
[2020-05-12] MEDS: Lactulose Oral Soln 20 GM/30 ML UDC PO SCH ×3 (08:20→20:23)
[2020-05-12] MEDS: lisinopriL 20 MG TABLET PO SCH (08:21)
[2020-05-12] MEDS: Gabapentin 300 MG CAPSULE PO SCH ×3 (08:21→20:23)
[2020-05-12] MEDS: Folic Acid 1 MG TABLET PO SCH (08:21)
[2020-05-12] MEDS: Aspirin Enteric Coated 81 MG Tablet PO SCH (08:21)
[2020-05-12] MEDS: Ipratropium 1 PUFF INHALER IH SCH ×2 (10:34→22:19)
[2020-05-12] MEDS: Ketorolac 30 MG/ML VIAL IVP SCH ×2 (11:28→17:41)
[2020-05-12] MEDS: Dexamethasone 4 MG/ML VIAL IVP SCH ×2 (11:29→20:23)
[2020-05-12] MEDS: *HR* Promethazine 25 MG/ML VIAL IVP PRN (11:29)
[2020-05-12] MEDS: Saliva Stimulant 100ml BOTTLE PO SCH ×6 (11:30→20:25)
[2020-05-12] MEDS ORDERED: Magnesium Sulfate 1 GM/102 ML PIGGYBACK IVPB ONE (11:34)
[2020-05-13] MEDS: Saliva Stimulant 100ml BOTTLE PO SCH ×7 (00:20→11:43)
[2020-05-13] MEDS: Ketorolac 30 MG/ML VIAL IVP SCH ×3 (00:33→11:42)
[2020-05-13] MEDS: Ampicillin/Sulbactam 3,000 MG in 0.9 % Sodium Chloride Mini Bag 100 ML IVPB SCH ×3 (00:35→11:43)
[2020-05-13] MEDS: Dexamethasone 4 MG/ML VIAL IVP SCH (02:59)
[2020-05-13] MEDS: *HR* Promethazine 25 MG/ML VIAL IVP PRN ×2 (04:23→10:34)
[2020-05-13] MEDS: *HR* Heparin 5,000 UNIT/ML VIAL SQ SCH (05:07)
[2020-05-13 06:55] LABS: Basophils % 0.3 %; Hematocrit 33.8 % (35.3-44.9); Hemoglobin 10.6 g/dL (11.5-15.4); Immature Granulocytes % 0.4 % (0-4); Lymphocytes # 1.9 K/mcL (0.6-4.6); Lymphocytes % 20.5 %; Mean Corpuscular HGB Conc 31.4 g/dL (31.6-35.5); Mean Corpuscular Hemoglobin 27.7 pg (28.0-33.3); Mean Corpuscular Volume 88.5 fL (83.0-100.0); Mean Platelet Volume 11.1 fL (9.4-12.4); Monocytes # 1.1 K/mcL (0.0-1.3); Monocytes % 12.1 %; Neutrophils # 6.2 K/mcL (1.6-8.9); Platelet Count 228 K/mcL (140-400); Red Blood Count 3.82 M/mcL (3.82-4.97); Red Cell Distribution Width 17.3 % (11.5-14.5); Segmented Neutrophils % 66.7 %; White Blood Count 9.3 K/mcL (4.3-11.1)
[2020-05-13 07:11] LABS: BUN/Creatinine Ratio 16 (6-26); Blood Urea Nitrogen 12 mg/dL (6-20); Calcium 8.9 mg/dL (8.6-10.3); Carbon Dioxide 23 mEq/L (23-29); Chloride 108 mEq/L (98-107); Glucose 136 mg/dL (70-105); Osmolality,Calculated 288 (280-300); Potassium 3.3 mEq/L (3.5-5.1); Sodium 138 mEq/L (136-145); eGFR For African Americans > 60 (> 60); eGFR For Non-African Americans > 60 (> 60)
[2020-05-13] MEDS: Lactulose Oral Soln 20 GM/30 ML UDC PO SCH (08:20)
[2020-05-13] MEDS: lisinopriL 20 MG TABLET PO SCH (08:20)
[2020-05-13] MEDS: Aspirin Enteric Coated 81 MG Tablet PO SCH (08:20)
[2020-05-13] MEDS: Gabapentin 300 MG CAPSULE PO SCH (08:21)
[2020-05-13] MEDS: Nicotine 14 MG PATCH.TD24 TD SCH (08:21)
[2020-05-13] MEDS: Folic Acid 1 MG TABLET PO SCH (08:21)
[2020-05-13] MEDS: Ipratropium 1 PUFF INHALER IH SCH (10:54)
[2020-05-13 10:59] VITALS: BP 121/73
[2020-05-13] MEDS ORDERED: FLU Vac QV 20-21 (6Month+)/PF 0.5 ML SYRINGE IM ONE (12:00)
== END 2020-05-13 14:38 | disposition home or self-care (01) | DRG 115 ==
LOC: 3ANU 01:44 → EMEROOARM 01:44 → 3ANU 06:04
PROVIDERS: ADMIT Internal Medicine; ATTEND Internal Medicine